=== PATIENT | male | born 1975 | race Caucasian/White ===

== ENCOUNTER 2016-06-21 16:18 | Inpatient (IN) | payer OTHER ==
[~2016-06-21] VITALS: Ht 172.7 cm; Wt 285.8 kg
[2016-06-21 17:10] LABS: ABSOLUTE BASOPHIL COUNT 0 /CUMM (0.0-0.2); ABSOLUTE EOSINOPHIL COUNT 0 /CUMM (0.0-0.7); ABSOLUTE GRANULOCYTE CT 9.4 /CUMM (1.4-6.5); ABSOLUTE LYMPH COUNT 1.3 /CUMM (1.2-3.4); ABSOLUTE MONOCYTE COUNT 0.8 /CUMM (0.10-0.60); BASOPHIL % 0.2 % (0.0-2.0); EOSINOPHIL % 0.3 % (0-5); GRANULOCYTE % 80.9 % (42.2-75.2); HEMATOCRIT 36.2 % (42-52); MEAN CORPUSCULAR HGB 25.1 PG (27.0-31.0); MEAN CORPUSCULAR HGB CONC 32.4 G/DL (33.0-37.0); MEAN CORPUSCULAR VOLUME 77.7 FL (80.0-94.0); MEAN PLATELET VOLUME 7.7 FL (7.4-10.4); PLATELET COUNT 402 /CUMM (130-400); RBC DISTRIBUTION WIDTH 17.1 % (11.5-14.5); RED BLOOD CELL CT 4.66 /CUMM (4.70-6.10); WHITE BLOOD CELL COUNT 11.6 /CUMM (4.8-10.8)
[2016-06-21 17:25] LABS: PT 12.6 SEC (9.4-12.5)
--- NOTE | 2016-06-21 18:05 | ED GENERAL ADULT ---
See Addendum History of Present Illness General Chief Complaint: General Adult Stated Complaint: PT THINKS HE BLEEDING UNDER THE SKIN Source: patient Exam Limitations: no limitations Vital Signs & Intake/Output Vital Signs & Intake/Output Vital Signs Date Time Temp Pulse Resp B/P Pulse O2 O2 Flow FiO2 Ox Delivery Rate 06/21 1930 101.7 98 20 133/69 100 Room Air 06/21 1644 98.5 113 158/92 94 Allergies Coded Allergies: No Known Allergies (06/21/16) Reconcile Medications Cholecalciferol (Vitamin D3) (D3-50) 50,000 UNIT CAPSULE 1 TAB PO ONCE A WEEK VITAMINS (Reported) Triage Note: PER PT BEHIND RT KNEE BRUISING AND L KNEE TOO, PT IS EXTREMELY OBESE AND WENT TO WALK IN AND WAS TOLD HE WAS BLEEDING UNDER HIS SKIN NEEEDS LABS, TENDER TO RT CALF, DENIES LONG TRAVEL NO TRAUMA. Triage Nurses Notes Reviewed? yes Onset: Gradual Duration: day(s): (4) Timing: no prior history Injury Environment: home Severity: moderate Severity Numbers: 6 HPI: Patient is a 41-year-old male with history of obesity but not any medications presenting to the emergency department with chief complaint of rash that started 4 days ago. Rash started initially on upper extremities and spread to his trunk and lower extremities. Patient was seen at a walk-in clinic and told to come to the emergency department for evaluation. Denies any new exposures. No recent travel. Denies any nausea vomiting fevers or chills chest pain or shortness of breath. The rash is not pruritic. The rash is not painful. Denies history of similar rash. Denies any urinary symptoms. No diarrhea. He reports that he had the chills 2 days prior to onset of rash but no other symptoms. Denies any excessive NSAID use. He was seen in a walk-in clinic and they thought he was "bleeding under THE skin "and told him to come to the ER. Patient denies taking anything to help with the rash. Nothing seems to make it better or worse. He reports that the backs of his knees are very "chafed" and now becoming painful and more red. He thinks may have cellulitis. Denies any numbness or tingling. Pain does not radiate. (LESLY AREVALO,YUN) Past History Travel History Traveled to [place] past 21 day No Medical History Any Pertinent Medical History? see below for history Neurological: NONE Cardiovascular: NONE Respiratory: NONE Gastrointestinal: MORBID OBESITY Hepatic: NONE Renal: NONE Psychiatric: NONE Endocrine: NONE Surgical History Surgical History: non-contributory Psychosocial History What is your primary language Romansh Tobacco Use: Never used Family History Hx Contributory? No (YUN HARTMAN) Review of Systems Review of Systems Constitutional: Reports: chills. Comments Review of systems: See HPI, All other systems negative. Constitutional, no fever or weight loss HEENT: No visual changes no sore throat no congestion Cardiovascular: No chest pain ,palpitation , orthopnea or ankle swelling Skin, no jaundice Respiratory: No dyspnea cough sputum or hemoptysis GI: No nausea no vomiting : No dysuria No hematuria Muscle skeletal: no back pain, no neck pain, Neurologic: No numbness no confusion NO TRIPATHI Psych: No stress anxiety Immunology: No splenectomy or history of AIDS (YUN HARTMAN) Physical Exam Physical Exam General Appearance: no apparent distress, alert, awake, comfortable, obese Comments: Obese person in no acute distress HEENT: Pupils equally round and reactive to light and accommodation. Nose is atraumatic. Pharynx normal. No swelling or edema. No oral lesions. Neck: Normal inspection Back: Nontender, no CVA tenderness. Full range of motion Cardiovascular: Regular rate and rhythms no murmurs rubs or gallops, normal JVP Respiratory: No respiratory distress.breath sounds clear to auscultation bilaterally Abdomen: Soft, obese, nontender nondistended Extremity: Severe nonpitting edema in lower extremities bilaterally, mild calf tenderness to palpation bilaterally, to palpate pulses secondary to body habitus. Neuro: Alert oriented x3, motor sensory normal Skin: Severe redness noted in the popliteal region on the left and right. Very warm to palpation in this area. Tattoos noted on the left lower extremity. Petechial rash noted to the lower aspect of the abdomen and lower extremities bilaterally. Psych: Mood and affect is normal, memory and judgment is normal. Core Measures ACS in differential dx? No CVA/TIA Diagnosis: No Severe Sepsis Present: No Septic Shock Present: No (YUN HARTMAN) Progress Differential Diagnoses I considered the following diagnoses in my evaluation of the patient: DVT, cellulitis, tick borne illness,ttp, hsp Plan of Care: Orders Procedure Date/time Status Regular Diet 06/22 B Active Saline Lock 06/21 2027 Active Misc Message 06/21 2027 Active ED Holding Orders 06/21 2027 Active Admit to inpatient 06/21 2027 Active Vital Signs 06/21 2027 Active Activity/Ambulation 06/21 2027 Active Code Status 06/21 2027 Active BLOOD CULTURE 06/21 2015 Active Patient Data 06/21 2009 Active RAPID VIRAL INFLUENZA A 06/21 1958 Complete Add-on Test (ER Only) 06/21 1917 Active Add-on Test (ER Only) 06/21 1803 Active Add-on Test (ER Only) 06/21 180 Active TOTAL IRON BINDING CAPACITY 06/21 165 Complete GLYCOSYLATED HGB 06/21 165 Active FOLIC ACID 06/21 165 Complete FERRITIN 06/21 165 Complete SERUM IRON 06/21 165 Complete PROTHROMBIN TIME 06/21 164 Complete D-DIMER 06/21 164 Complete COMPREHENSIVE METABOLIC PANEL 06/21 164 Complete CBC WITHOUT DIFFERENTIAL 06/21 164 Complete Laboratory Tests 06/21/16 1654: Hemoglobin A1c Pending 06/21/16 1654: Anion Gap 14, Estimated GFR > 60, BUN/Creatinine Ratio 17.8, Glucose 114 H, Calcium 9.3, Iron 15 L, TIBC 323, Ferritin 107.0, Total Bilirubin 0.6, AST 21, ALT 20 L, Alkaline Phosphatase 84, Total Protein 7.9, Albumin 3.8, Globulin 4.1 , Albumin/Globulin Ratio 0.9 L, Folate 11.3, PT 12.6 H, INR 1.20 H, D-Dimer 2587 H, CBC w Diff NO MAN DIFF REQ, RBC 4.66 L, MCV 77.7 L, MCH 25.1 L, RDW 17.1 H, MPV 7.7, Gran % 80.9 H, Lymphocytes % 11.4 L, Monocytes % 7.2, Eosinophils % 0.3, Basophils % 0.2, Absolute Granulocytes 9.4 H, Absolute Lymphocytes 1.3, Absolute Monocytes 0.8 H, Absolute Eosinophils 0, Absolute Basophils 0, PUBS MCHC 32.4 L, Ehrlichia DNA (PCR) Pending Microbiology 06/21 2015 BLOOD: Blood Culture - ORD 06/21 2015 BLOOD: Blood Culture - ORD Diagnostic Imaging: Viewed by Me: Ultrasound. Discussed w/RAD: Ultrasound. Radiology Impression: PATIENT: JOSE BAKER RECORD NO: [id number] PRESENT AGE: 41 PATIENT ACCOUNT NO: [id number] : 73 LOCATION: [facility] ORDERING PHYSICIAN: YUN AREVALO SERVICE DATE: 06/21/16 EXAM TYPE: US - US-EXT BILAT VENOUS DOPPLER EXAMINATION: US TRIPLEX LOWER EXTREMITY, BILATERAL CLINICAL INFORMATION: Lower extremity pain and swelling. COMPARISON: None. TECHNIQUE: Color-flow triplex imaging with spectral analysis and compression Doppler were performed on the bilateral lower extremities. The study is significantly limited as reported by the technologist due to patient body habitus. FINDINGS: Respiratory variation, normal compression and augmented flow are noted throughout the bilateral lower extremities. The visualized common femoral vein, superficial femoral vein, and profunda femoral vein. Color flow is visible within the right popliteal vein and posterior tibial/peroneal trunk region. The remainder of the calf veins inferiorly are not visible on the right side. The left popliteal vein and calf veins are not adequately assessed. There is no Simon's cyst. IMPRESSION: Very limited study due to patient body habitus. No evidence of a deep vein thrombosis in the right lower extremity from the common femoral vein to the popliteal vein with poor visualization of the calf veins distal to the posterior tibial/peroneal trunk region. No evidence of deep vein thrombosis in the left lower extremity from the common femoral vein to the profunda femoral vein. The left popliteal vein and calf veins are not readily visualized due to patient body habitus. DICTATED BY: ALAN LI MD DATE/ TIME DICTATED:06/21/161920 ASTRONOMY PROFESSOR:PENG DATE/TIME TRANSCRIBED: 06/21/161920 CONFIDENTIAL, DO NOT COPY WITHOUT APPROPRIATE AUTHORIZATION. < Electronically signed in Other Vendor System> SIGNED BY: ALAN LI MD 06/21/161928 Initial ED EKG: none Comments: 06/21/2016 6:21:58 PM on arrival patient is afebrile no acute distress. Appears the patient has good to go rash in the lower extremities and abdomen with localized cellulitis in the popliteal region bilaterally. Patient will of her lower extremity Doppler to rule out DVT, more suspecting cellulitis. Unsure of etiology of petechial rash at this time. We will assess CBC, CMP, tick borne panel. No known history of tick bite or travel. 06/21/2016 7:14:41 PM patient informed of all lab results and imaging study results. No signs of DVT on ultrasound. Patient now febrile at 101.7. Patient will be admitted for cellulitis. We will also assess for flu swab. 06/21/2016 8:17:54 PM patient medicated with IV Toradol, IV fluids. Patient resting comfortably. Blood cultures ordered now the patient is febrile. (YUN HARTMAN) Departure Departure Time of Disposition: 1958 Disposition: STILL A PATIENT Condition: Stable Clinical Impression Primary Impression: Cellulitis Referrals: PATIENT HAS NO PRIMARY CARE DR (PCP/Family) Departure Forms: Customer Survey General Discharge Information Admission Note Sp[facility] With: ALISON FOLEY,[facility] Documentation of Exam: Documentation of any treatments & extenuating circumstances including Concerns Regarding Discharge (functional status, medication knowledge or non-compliance, living conditions, etc.) that warrant an admission rather than observation: Patient requiring IV antibiotics for cellulitis, pending tickborne panel for questionable vasculitis, IV hydration, patient may need infectious disease consultation, discharge at this time would be medically harmful. (YUN HARTMAN) PA/SUPERVISOR MIXING Co-Sign Statement Statement: ED Attending supervision documentation- [X] I saw and evaluated the patient. I have also reviewed all the pertinent lab results and diagnostic results. I agree with the findings and the plan of care as documented in the PA's/SUPERVISOR MIXING's documentation. [X] I have reviewed the ED Record and agree with the PA's/SUPERVISOR MIXING's documentation. [] Additions or exceptions (if any) to the PAs/SUPERVISOR MIXING's note and plan are summarized below: [] (CHERRI FOLEY,ALAN Villafuerte) Critical Care Note Critical Care Note Critical Care Time: non-applicable (YUN HARTMAN)
--- NOTE | 2016-06-21 19:29 | ULTRASOUND REPORT ---
EXAMINATION: US TRIPLEX LOWER EXTREMITY, BILATERAL CLINICAL INFORMATION: Lower extremity pain and swelling. COMPARISON: None. TECHNIQUE: Color-flow triplex imaging with spectral analysis and compression Doppler were performed on the bilateral lower extremities. The study is significantly limited as reported by the technologist due to patient body habitus. FINDINGS: Respiratory variation, normal compression and augmented flow are noted throughout the bilateral lower extremities. The visualized common femoral vein, superficial femoral vein, and profunda femoral vein. Color flow is visible within the right popliteal vein and posterior tibial/peroneal trunk region. The remainder of the calf veins inferiorly are not visible on the right side. The left popliteal vein and calf veins are not adequately assessed. There is no Simon's cyst. IMPRESSION: Very limited study due to patient body habitus. No evidence of a deep vein thrombosis in the right lower extremity from the common femoral vein to the popliteal vein with poor visualization of the calf veins distal to the posterior tibial/peroneal trunk region. No evidence of deep vein thrombosis in the left lower extremity from the common femoral vein to the profunda femoral vein. The left popliteal vein and calf veins are not readily visualized due to patient body habitus.
[2016-06-21] MEDS ORDERED: D3-5050000 UNIT PO (19:39)
--- NOTE | 2016-06-21 21:01 | History & Physical ---
SILVIA RODRIGUEZ MD 06/21/162100: General Information and HPI MD Statement: I have seen and personally examined JOSE BAKER and documented this H&P. The patient is a 41 year old M who presented with a patient stated chief complaint of [rash]. Source of Information: patient, family Exam Limitations: no limitations History of Present Illness: 41-year-old with PMH of morbid obesity, severe chronic bilateral leg swelling most likely lymphedema, presented to the ED for evaluation of rash. The rash started 4 days ago, in both upper extremities, characteristic is pinpoint, raised, non-blanching, painless, SPARES THE PALMS. The rash then spread to his trunk, back and lower extremities. The characteristic of the rash on his trunk, groin fold, and lower extremities are petechial - purpuric, not raised, non-blanching, SPARING THE SOLES. The purpuric rash is worst on the back side of his right knee compared to the left. On our examination, there is no rash on the back and chest. He is also reporting "cellulitis" on the back of his left knee. He notes worsening erythema on the back of his knee over the past 1 week, and says that the area is "chafed and bruised". It also hurts more on ambulation. But he denies decreased ambulation due to the pain. Pain level was 2-3 during examination at rest (toradol was given 1 time in the ED). There was an oval 15cm X 10cm black lesion on the back of his left knee, that looks like a scab, but could be necrotic skin. There was no obvious abscess, or drainage. The area was non tender to touch. He also notes worsening erythema of the back of his right knee that started 2 days ago. He presented to the walk in clinic today, and was told to go to the ED for further evaluation of the rash, described as "bleeding under the skin", and blood work. Pt was a little upset about having to be admitted. He has a sleep study scheduled tomorrow at [facility] and he would be charged $200 for less than 24 hours cancellation. He would like a doctor to call the clinic tomorrow to let them know that he is being admitted. ROS: Stuffy nose and dry cough started in the ED. He also reports chills when his temp was found to be 101.7 in the ED (he came in with temp 98.5). He also had chills last saturday after he had "undercooked sausage" burrito, soon after which he also had difficulty breathing and was feeling dizzy. He was evaluated at EMS and "they could not find anything wrong". On Saturday, he had diarrhea, which has now resolved. No nausea, or vomiting, and has been tolerating food well. denies chest pain, shortness of breath, palpitations, abdominal pain. Reports darkening of urine today (attributed it to feeling dehydrated, not drinking that much fluids). He denies waking up in the middle of the night short of breath, or waking up tired. But he is supposed to get sleep study done tomorrow. FH: dad has HTN and stroke, . mom has diet controlled diabetes mellitus. Social history: Pt lives at home by himself. Denies smoking and illicit drug use. Occasional alcohol use. Pt has 6 tatoos: 1 on his back, 3 on his left lower extremity, 1 on each biceps, all done more than 8 years ago. 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 Sexual history: Pt has 1 lifetime sexual partner and has not been sexually active in 2 years. Allergies: dust Meds: Vit D and multivitamin Allergies/Medications Allergies: Coded Allergies: No Known Allergies (06/21/16) Home Med list Cholecalciferol (Vitamin D3) (D3-50) 50,000 UNIT CAPSULE 1 TAB PO ONCE A WEEK VITAMINS (Reported) Past History Travel History Traveled to [place] past 21 day No Medical History Neurological: NONE Cardiovascular: NONE Respiratory: NONE Gastrointestinal: MORBID OBESITY Hepatic: NONE Renal: NONE Psychiatric: NONE Endocrine: NONE Surgical History Surgical History: non-contributory Past Family/Social History Family History Relations & Conditions if any FATHER FH: hypertension FH: stroke MOTHER FH: diabetes mellitus Psychosocial History Where do you live? Home Who Do You Live With? self Services at Home: None Primary Language: Pakistani Smoking Status: Never Smoked ETOH Use: occasional use Illicit Drug Use: denies illicit drug use Functional Ability ADLs Independent: dressing, eating, toileting, bathing. Ambulation: independent IADLs Independent: shopping, housework, finances, food prep, telephone, transportation , medication admin. 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 Denies: weakness. EENTM: Denies: visual changes. Cardiovascular: Reports: peripheral edema. Denies: chest pain, edema, orthopena, palpitations. Respiratory: Reports: cough. Denies: hemoptysis, orthopnea, short of breath, sputum production. GI: Denies: abdominal pain, bloating, constipation, diarrhea, nausea, bloody stool, changes in stool, vomiting. Genitourinary: Denies: dysuria. Skin: Reports: see HPI. Exam & Diagnostic Data Last 24 Hrs of Vital Signs/I&O Vital Signs Date Time Temp Pulse Resp B/P Pulse O2 O2 Flow FiO2 Ox Delivery Rate 06/21 1931 101.7 98 20 133/69 100 Room Air 06/21 1644 98.5 113 158/92 94 Physical Exam General Appearance Alert, Oriented X3, Cooperative, anxious and a little irritable Skin - rash UE pinpoint, raised, non blanching, painless, spares palm - rash trunk, bilateral LE, groin fold - petechial-purpuric, not raised, non blanching, painless, sparing the soles - oval 15 cm X 10 cm black lesion on back of his left knee, no obvious abscess/drainage HEENT Atraumatic, PERRLA, EOMI, dry lips and mucous membranes Neck Supple, +2 Carotid Pulse wo Bruit, No LAD Lymphatic Axillary nl, Cervical nl Cardiovascular Normal S1, Normal S2, No Murmurs, Gallops, Rubs, tachycardic Lungs Clear to Auscultation, Normal Air Movement Abdomen Normal Bowel Sounds, Soft, No Tenderness, No Hepatospenomegaly, obese abdomen Neurological Normal Speech Extremities severe. chronic leg swelling. non pitting. Vascular Normal Pulses Last 24 Hrs of Labs/Kenn: Laboratory Tests 06/21/16 2309: Lactic Acid Pending, ESR Westergren Pending 06/21/16 1654: Hemoglobin A1c Pending, Hepatitis A IgM Ab Pending, Hep Bs Antigen Pending, Hep B Core IgM Ab Conf Pending, Hepatitis C Antibody Pending, HIV 1&2 Ab Western Blot Pending 06/21/16 1654: Anion Gap 14, Estimated GFR > 60, BUN/Creatinine Ratio 17.8, Glucose 114 H, Lactic Acid 1.3, Calcium 9.3, Iron 15 L, TIBC 323, Ferritin 107.0, Total Bilirubin 0.6, AST 21, ALT 20 L, Alkaline Phosphatase 84, C-Reactive Prot, Quant 7.6 H, Total Protein 7.9, Albumin 3.8, Globulin 4.1, Albumin/Globulin Ratio 0.9 L, Folate 11.3, TSH 3.550, PT 12.6 H, INR 1.20 H, D-Dimer 2587 H, CBC w Diff NO MAN DIFF REQ, RBC 4.66 L, MCV 77.7 L, MCH 25.1 L, RDW 17.1 H, MPV 7.7, Gran % 80.9 H, Lymphocytes % 11.4 L, Monocytes % 7.2, Eosinophils % 0.3, Basophils % 0.2, Absolute Granulocytes 9.4 H, Absolute Lymphocytes 1.3, Absolute Monocytes 0.8 H, Absolute Eosinophils 0, Absolute Basophils 0, PUBS MCHC 32.4 L, Ehrlichia DNA (PCR) Pending Microbiology 06/21 2230 URINE ROUT: Urine Culture - ORD 06/21 2230 STOOL: Stool Culture - ORD 06/21 2212 BLOOD: Blood Culture - RECD 06/21 2208 BLOOD: Blood Culture - RECD Assessment/Plan Assessment: 41-year-old with PMH of morbid obesity, severe chronic bilateral leg swelling most likely lymphedema, presented to the ED for evaluation of rash. Admitted to general medicine for the following problems: # Diffuse rash affecting upper extremities, lower extremities, trunk, sparing the palms and soles. Possible cause could be vasculitis (hx of repeated "cellulitis" of the leg, although no FH of autoimmune disease) vs infectious ( spiked fever to 101.7 in ED, recent hx of diarrhea after eating undercooked sausage, that has resolved) vs meningoccocal meningitis (unlikely because he does not have neck stiffness/neurological symptoms/headache) vs drug induced ( but unlikely because he denies new medications, and eosinophil normal) vs syphilis (pt has 1 lifetime sexual partner and has not been sexually active in 2 years) vs hepatitis C cryoglobulinemia (has 6 tatoos: 1 on his back, 3 on his left lower extremity, 1 on each biceps, all done more than 8 years ago) vs tick- borne (although denies recent travel or outdoor activities). - The rash started 4 days ago, in both upper extremities, characteristic is pinpoint, raised, non-blanching, painless, non-pruritic, SPARES THE PALMS. The rash then spread to his trunk, back and lower extremities. The characteristic of the rash on his trunk, groin fold, and lower extremities are petechial - purpuric, not raised, non-blanching, non-pruritic, painless, SPARING THE SOLES. The purpuric rash is worst on the back side of his right knee compared to the left. On our examination, there is no rash on the back and chest. - Pt feels dehydrated and notes darkening of urine, most likely due to dehydration * IVF NS at 125ml/hr. * Consider starting steroids * Follow up HIV, hepatitis panel * Follow tick borne panel: erlichia, lyme * Follow LUIS ANGEL, RF, ASO * Follow C-ANCA, P-ANCA, anti-myeloperoxidase, cryoglobulin, complement levels * Follow urine toxicology * Might need skin biopsy * Negative rapid flu * ESR elevated at 83 * CRP elevated at 7.6 * Lactic acid 1 --> 0.7 * Panculture: BC, sputum culture, stool wbc, stool culture, UA, urine culture * Please obtain ID and rheumatology consult in am * Consider derm consult and wound consult # Sepsis (fever up to 101.7, leukocytosis, tachycardia) most likely secondary to cellulitis. Possible cellulitis of back of left knee, with elevated D dimer, DVT ruled out with doppler studies - Worsening redness and pain on the back of his left knee over the past 1 week, area is warm to the touch compared to the rest of his body. - It hurts more on ambulation. But he denies decreased ambulation due to the pain. Pain level was 2-3 during examination at rest (toradol was given 1 time in the ED). There was an oval 15cm X 10cm black lesion on the back of his left knee , that looks like a scab, but could be necrotic skin. There was no obvious abscess, or drainage. The area was non tender to touch. - He also notes worsening erythema of the back of his right knee that started 2 days ago. - D dimer elevated at 2587. Doppler of both lower extremities negative for DVT. - WBC 11.6, spiked fever up to 11.6. Was given 1 time IV unasyn in the ED * Continue unasyn pending ID evaluation * Tylenol for fever and pain * Oxycodone for pain * CXR for possible PNA (cough started in ED) * Follow fibrin split product and fibrinogen level # Candidiasis of abdominal fold * Nystatin powder # Anemia of chronic disease? - Iron low at 15. Ferritin normal 107, TIBC 323 * Watch H/H # Thrombocytosis - platelet 402 H * Watch platelet count # Morbid obesity - Currently following up with haul driver and plan for bariatric surgery in October- November * Lipid panel and hba1c # Possible MEHRAN - Supposed to get sleep at [facility] on 06/22/16 and he would be charged $200 for cancelling in less than 24 hours due to current admission * Please call the clinic and let them know he is being admitted # Home meds not continued - Vit D - Multivitamin Diet: regular Fluids: 125ml/hr NS DVT ppx: mech and pharm FULL CODE As Ranked By This Provider Problem List: 1. Cellulitis 2. Rash Core Measures/Miscellaneous Acute Coronary Syndrome ACS Diagnosis: No Cerebrovascular Accident CVA/TIA Diagnosis: No Congestive Heart Failure CHF Diagnosis: No Venous Thromboembolism VTE Risk Factors: Acute medical illness, Age > 40 VTE Prophylaxis Ordered Inpt: Mech & Pharm No Mech VTE prophylaxis d/t: No contraindications No VTE Pharm Prophylaxis d/t: No contraindications VTE Diagnosis: No VTE Type: NONE VTE Confirmed by (Test): DUPLEX VENOUS EXTREM UNI Severe Sepsis Severe Sepsis Present: No Septic Shock Septic Shock Present: No Miscellaneous Documentation Attending Case Discussed With: TUYET ROSAS MD Primary Care Physician: PATIENT HAS NO PRIMARY CARE DR Patient sees these Specialists None Level of Patient Care: General Medicine LINDSAY ROSAS MD 06/21/16 9036: Attending MD Review Statement Attending Statement Attending MD Statement: examined this patient, discuss w/resident/PA/ORNAMENTAL BRICK INSTALLER, agreed w/resident/PA/ORNAMENTAL BRICK INSTALLER, discussed with family Attending Assessment/Plan: 41 yo morbidly obese M with chronic LE edema, vit D deficiency, sent in by a walk in clinic for evaluation of petechial rash over bilateral arms, purpuric rash over lower abdomen and b/l lower extremities, sparing palms and soles over past 4 days. He reports the back of the left knee feels chafed/ bruised for the past 1 week, and worsening erythema to right leg over 2 days. This was preceded by diarrhea without nausea/vomiting/ abd pain on Saturday after eating sausage burrito on the Saturday prior. Denies recent travel, trauma, sick contacts or new medications. No tick bites. No new detergents or clothing. Not sexually active for past 2 years. Reports poor appetite, chills+. Dry cough while in ER. Family history is noncontributory. Vitals: Tmax 101.7, tachycardic 90-110's, ANGELITA 133/69, sats 100% RA. Exam: morbidly obese male in mild distress, dry mucous membranes, no mucosal involvement no rash/ blisters to buccal mucosa, no pallor or lymphadenopathy. Petechial nonblanching, non pruritic rash noted to b/l arms, purpuric rash noted to lower abdomen and groin. Moist fungal rash noted to intertriginous area ( groin). Bilateral LE non pitting edema (chronic) with venous stasis changes, with purpuric rash to posterior aspect of both knees (L>R). Left LE appears more erythematous than right, painful, no blisters or open wounds. Rash spares palms, soles, chest and back. Tattoes noted to LLE, b/l arms (>8 yrs ago). Chest b/l clear, Heart S1S2 tachycardic, Abd soft, non tender. Neuro nonfocal, no meningeal signs. Labs: WBC 11.6, microcytic anemia, Plt 402, INR 1.20, D-dimer 2587, elevated CRP , normal lactic acid, TSH/free T4, LE dopplers no DVT. 1. Fever and rash in an immunocompetent host of unclear etiology. ?Infectious etiology, ?tick borne disease vs. vasculitides. Meningococcemia may present with rash sparing palms and soles. Will panculture, check flu swab, strep throat, tick-borne panel sent from ER, check HIV, hepatitis panel, ESR, LUIS ANGEL, RF, ANCA. Check HbA1c, lipid panel. Obtain urinalysis and urine tox screeen. Continue IV fluids @ 125/hr. Check EKG and troponin in the setting of tachycardia. Obtain CXR to rule out pneumonia. Rheumatology and ID consults in AM. 2. SIRS (fever, tachycardia) with possible source being left lower extremity cellulitis. Panculture, UA and CXR pending, continue IV Unasyn for now. ID consult in AM. Elevate LE. 3. Elevated d-dimer in the setting of infection, SIRS/sepsis. No evidence of DVT , low likelihood of PE not hypoxic or tachypneic. Check DIC panel. LFTs and renal functions are normal. Consider CTA chest if patient persistently tachycardic, hypoxic or tachypneic. 4. Thrombocytosis likely reactive in the setting of infection and anemia. 5. Microcytic anemia low serum iron, borderline low normal TIBC and elevated ferritin (107), most likely s/o anemia of inflammation or chronic disease, although iron deficiency cannot be ruled out. Guaiac all stools. Hold off on iron supplements for now. DVT ppx Alps, avoid heparin products for now. Full code. Of note, patient is scheduled for a sleep study on 06/22 at [facility]. He called to cancel the appointment, however they are asking him to pay the charges. He is requesting a physician to speak with [facility] office and let them know about his admission to forfeit the fees. SA TRUMANUD 06/21/16 0003: Resident Review Statement Resident Statement: examined this patient, discussed with chief of internal medicine, agreed with chief of internal medicine, discussed with family, reviewed EMR data (avail), reviewed images, amended to note Other Findings: This is 41-year-old with PMH of morbid obesity, severe chronic bilateral leg swelling\\ presented to the ED for evaluation of rash. Patient stated that prior started 4 days ago in his upper extremity and descend to involve his abdomen and back and his lower extremity. Patient also reports on and off cellulitis, but he stated since last week his cellulitis getting worse especially in the left side and he developed right lower extremity cellulitis 2 days ago. He stated that there was an oval black lesion on the back of his left knee, that looks like a scab, but could be necrotic skin. There was no obvious abscess, or drainage. The area was non tender to touch. Patient stated that he has some difficulty ambulation due to pain. Patient also reports feeling sick after eating under cooked meat, he stated that in breasts was cold when he was in walk because he felt dizzy and difficulty breathing and after evaluation he was sent home without any further intervention also he reports some diarrhea that resolved now. He denied any sick contact or recent traveling. He deny any fever or chills. But during his stay in the emergency department spike a fever of 101.7 that was associated with chills. denies chest pain, shortness of breath , palpitations, abdominal pain. Reports darkening of urine today he feeling dehydrated and not drinking that much fluids. patient deny any tick bite, hiking. Physical examination, lab and imaging as above. Problem list: -Bilateral lower extremity cellulitis -Extensive non-itchy nonblanching rash, vasculitis need to be ruled out, This rash also it could be secondary to bacteremia. -Microcytic iron deficiency anemia -Leukocytosis, thrombocytosis -Morbid obesity Plan: -Admit patient to general medicine floor -Vitals every shift, monitor I & Os. -We'll continue IV Unasyn, send lactic acid -Blood, urine and sputum culture, urinalysis -Serology involving hepatitis panel, HIV -Continue IV fluid hydration at 75 mL per hour -Start the patient on iron supplement. -Check hemoglobin A1c, TSH, ESR, CRP, LUIS ANGEL and Lipid Panel -Nystatin powder as needed for rash -Consider ID, Rhumatology consultation in a.m. -Wound care consultation -Regular diet -Pain away -DVT prophylaxis: Lovenox -Full code -Full code
--- NOTE | 2016-06-21 21:10 | Admission Certification ---
Admission Certification Certification Statement - As attending physician, I certify that at the time of - admission, based on clinical presentation, severity of - symptoms, need for further diagnostic testing and - therapeutic interventions, and risk of adverse outcomes - without in-hospital treatment, in my clinical assessment, - this patient requires an acute hospital stay for a minimum - of two nights or longer. I have also considered psychsocial - factors such as support system, advanced age, financial - issues, cognitive issues, and failed out-patient treatments, - past re-admission history, safety of patient, and lack of - compliance as applicable. Specific rationale supporting this admission is: Fever and extensive rash of unclear etiology. Possible LE cellulitis.
[2016-06-22 05:51] LABS: ABSOLUTE BASOPHIL COUNT 0 /CUMM (0.0-0.2); ABSOLUTE EOSINOPHIL COUNT 0.1 /CUMM (0.0-0.7); ABSOLUTE GRANULOCYTE CT 5.1 /CUMM (1.4-6.5); ABSOLUTE LYMPH COUNT 1.6 /CUMM (1.2-3.4); ABSOLUTE MONOCYTE COUNT 0.8 /CUMM (0.10-0.60); BASOPHIL % 0.3 % (0.0-2.0); EOSINOPHIL % 0.9 % (0-5); MEAN CORPUSCULAR HGB 25.5 PG (27.0-31.0); MEAN CORPUSCULAR HGB CONC 32.9 G/DL (33.0-37.0); MEAN CORPUSCULAR VOLUME 77.5 FL (80.0-94.0); MEAN PLATELET VOLUME 7.4 FL (7.4-10.4); PLATELET COUNT 330 /CUMM (130-400); RBC DISTRIBUTION WIDTH 17.3 % (11.5-14.5); RED BLOOD CELL CT 3.75 /CUMM (4.70-6.10); WHITE BLOOD CELL COUNT 7.6 /CUMM (4.8-10.8)
[2016-06-22 06:10] LABS: HEMATOCRIT 29.1 % (42-52)
--- NOTE | 2016-06-22 06:52 | PN- Housestaff ---
DIANNA FOLEY,SUNNY 06/22/16 0651: Subjective Follow-up For: Rash is all over the body, with fever Subjective: I followed of the patient who was admitted overnight. He was lying comfortably over the bed, not in any acute distress. No overnight events. Vitals stable. Review of Systems Constitutional: Reports: see HPI, fever. Denies: chills, diaphoresis, malaise, weakness. EENTM: Reports: no symptoms. Cardiovascular: Reports: no symptoms. Respiratory: Reports: no symptoms. Gastrointestinal: Reports: no symptoms. Genitourinary: Reports: no symptoms. Musculoskeletal: Reports: no symptoms. Skin: Reports: see HPI, rash. Neurological/Psychological: Reports: no symptoms. Hematologic/Endocrine: Reports: no symptoms. Objective Last 24 Hrs of Vital Signs/I&O Vital Signs Date Time Temp Pulse Resp B/P Pulse O2 O2 Flow FiO2 Ox Delivery Rate 06/22 1624 98.3 91 20 146/76 96 06/22 1343 98.8 92 20 158/73 95 Room Air 06/22 0818 100.9 92 20 135/66 97 Room Air 06/22 0454 100.2 06/21 1931 101.7 98 20 133/69 100 Room Air Intake & Output 06/22 1600 06/22 0800 06/22 0000 Intake Total 1240 2100 Output Total Balance 1240 2100 Intake, IV 1000 2100 Intake, Oral 240 Patient 285.763 kg Weight Physical Exam General Appearance: Alert, Oriented X3, Cooperative, No Acute Distress, morbidly obese Other Physical Findings: Physical examnination: General: morbidly obese patient not in distress Head: Normocephalic, atraumatic Eyes: Pupils normal in size, regular, reacting to light and accommodation, EOM normal Ears: B/l normal on inspection Nose: Normal on inspection Throat/mouth: Moist mucosa Neck: Supple, full range of motion, no thyromegaly Heart: Regular rate, regular rhythm Lung: Normal breath sound bilaterally Added sound not heard Abd: Soft, non-tender, no distention appreciated Back: Normal range of motion Extremities: Left popleteal ulceration, with diffuse petechial rashes over upper , and lower extremities (marked with surgical marker for future reference) Neurologic: Alert, oriented x3, Cranial exam grossly intact, Speech is clear and coherent Skin: Warm and dry, small petechial rashes over torso, and lower abdomen, more over extremities. Rash over right upper arm has appeared overnight according to the patient. Psychiatric: Calm, cooperative, coherant, no SI, no HI Current Medications: Current Medications Sig/Mina Start time Last Medication Dose Route Stop Time Status Admin Acetaminophen 650 MG Q6P PRN 06/21 2230 AC PO Ampicillin Sodium/ 0 .STK-MED ONE 06/22 1127 DC Sulbactam Sodium .ROUTE Ampicillin Sodium/ 0 .STK-MED ONE 06/22 0500 DC Sulbactam Sodium .ROUTE Ampicillin Sodium/ 3,000 MG Q6 06/21 2359 AC 06/22 Sulbactam Sodium IV 1701 Sodium Chloride 100 ML Enoxaparin Sodium 0 .STK-MED ONE 06/22 1127 DC SC Enoxaparin Sodium 40 MG DAILY 06/22 1000 AC 06/22 SC 1150 Ferrous Sulfate 325 MG BID 06/22 1000 CAN PO Ibuprofen 400 MG Q6P PRN 06/21 2230 CAN PO Ketorolac 0 .STK-MED ONE 06/21 2001 DC Tromethamine .ROUTE Ketorolac 30 MG ONCE ONE 06/21 1999 DC 06/21 Tromethamine IV 06/21 2000 2005 Nystatin 1 ARIADNA TID PRN 06/21 2245 AC TOP Oxycodone HCl 10 MG Q6P PRN 06/21 2230 AC PO Sodium Chloride 1,000 ML .Q8H 06/21 2230 AC 06/22 IV 1701 Sodium Chloride 1,000 ML BOLUS ONE 06/21 1999 DC 06/21 IV 06/21 2058 2005 Triamcinolone 1 ARIADNA BID 06/22 1409 AC 06/22 Acetonide TOP 1701 Last 24 Hrs of Lab/Kenn Results Last 24 Hrs of Labs/Mics: Laboratory Tests 06/22/16 1720: APTT 30, Complement C3 Pending, Complement C4 Pending 06/22/16 0930: Urine Opiates Screen < 100.00, Methadone Screen < 40, Barbiturate Screen < 60, Ur Phencyclidine Scrn < 6.00, Amphetamines Screen < 100, U Benzodiazepines Scrn < 85, Urine Cocaine Screen < 50, Urine Cannabis Screen < 5.00, Urine Color YEL, Urine Clarity CLEAR, Urine pH 6.0, Ur Specific [place] >= 1.030, Urine Protein TRACE H, Urine Ketones NEG, Urine Nitrite NEG, Urine Bilirubin NEG, Urine Urobilinogen 1.0, Ur Leukocyte Esterase NEG, Ur Microscopic SEDIMENT EXAMINED, Urine RBC RARE, Urine WBC 3-5 H, Urine Mucus MANY H, Urine Hemoglobin NEG, Urine Glucose NEG 06/22/16527: Troponin I < 0.01, Rheum Factor Semi-Quant < 8.6 06/22/16527: Anion Gap 9, Estimated GFR > 60, BUN/Creatinine Ratio 17.5, Triglycerides 77, Cholesterol 137, LDL Cholesterol, Calc 82, HDL Cholesterol 40, Cholesterol/HDL Ratio 3, APTT 30, Fibrinogen Activity 430 H, Fibrin Degrad Products >10 but < 40 ug/ml H, CBC w Diff NO MAN DIFF REQ, RBC 3.75 L, MCV 77.5 L, MCH 25.5 L, RDW 17.3 H, MPV 7.4, Gran % 67.0, Lymphocytes % 21.5, Monocytes % 10.3 H, Eosinophils % 0.9, Basophils % 0.3, Absolute Granulocytes 5.1, Absolute Lymphocytes 1.6, Absolute Monocytes 0.8 H, Absolute Eosinophils 0.1, Absolute Basophils 0, PUBS MCHC 32.9 L, LUIS ANGEL Titer ND, Anti-Nuclear Antibody NEG 1:40 IFA ASSAY, RPR Titer/FTA Pending, Lyme Disease Antibody 0.20 06/22/16 0125: Lactic Acid 0.7 06/21/16 2309: Lactic Acid 1.0, ESR Westergren 83 H 06/21/16 2013: Virus Culture Pending Microbiology 06/21 2230 URINE ROUT: Urine Culture - CAN Cancelled: SPECIMEN NOT RECEIVED IN LABORATORY 06/21 2230 STOOL: Stool Culture - CAN Cancelled: SPECIMEN NOT RECEIVED IN LABORATORY 06/21 221 BLOOD: Blood Culture - RES 06/21 2208 BLOOD: Blood Culture - RES Assessment/Plan Assessment: 41 yo morbibly obese male with no significant past medical history presented with complaints of rashes over his torso and extremities, who was found to have fever on admission, is currently being evaluated and managed in the general medical floor. On admission, his vitals were stable with temp 98.5, later 101.7 max, pulse 113, resp rate 20, BP 158/92, pulse ox 94% on room air. Initial labs were significant for WBC-11.6, Hb 1107, hct 36.2, plt- 402, normal lytes, CRP 7.6 (high), ESR 83 (high), normal LFT, normal UA with trace protein. PT was 12.6 with INR 1.2, APTT 30, fibronogen activity 430, FDP >10 but <40, D- dimer 2587. TSH normal, folate normal. Further testing showed RA factor <8.6, LUIS ANGEL negative, Hepatitis panel and HIV negative, Lyme disease ab 0.20, negative toxicology screen, Imaging: CXR showed Somewhat limited exam demonstrating low lung volumes and patchy nonspecific bibasilar airspace opacities suggesting edema versus multifocal consolidation. Normal venous Doppler ruling out DVT, left popliteal vein and calf veins not visualized due to patient's body habitus. (Patient does not have tender calves though) #Generalized rash with fever Patient gives history of 3 days history of rash, with fever and chills one week prior to that which had subsided. Rash seems to be increasing with new ones over right upper arm. This is very non-specific and brodens the differential diagnoses to viral infection, bacterial infection, vasculitis, allergies, among others. Lab data is also not specific enough to reach a diagnosis. - Workup so far mentioned above. - Workup pending: Blood and urine culture, Viral culture, RPR, Ehrlichia DNA. - Consulted Staci Jernigan over phone who suggested that the process is likely to be dermatologic, and does not seem to require a formal consultation with permastone applicator at this point of time, but will vist and consult if deemed required by the attending over the weekned too. -Dermatology consultation placed, who suggested skin biopsy for definitive diagnosis, and triamcinolone cream for now. Patient has been seen by surgeon Dr Bhagat for possible biopsy, and informed that the reading might be only after Saturday though. Need to confirm about biopsy time. -Rheumatology consult placed with Dr Guerra, who suggested Dermatologic evaluation as well, ordering ANCA, and not starting systemic steroid for now. - Follow CBC, BEP tomorrow #Cellulitis/skin infection Patient has area of redness in the intertriginous areas, and one area of ulceration over left popliteal fossa. With the fever, slightly high WBC count, and clinical picture, cellulitis is highly likely. -Patient has been started on Unasyn IV, and IV fluids. -Continue abx for now -Continue IV fluids for now -Tylenol for fever -Oxycodone for pain #Fungal infection over abdominal fold/lower part of legs -Continue antifungal agents #Anemia -Microcytic anemia -Most likely of chronic disease, or due to inflammatory process, as the iron is low but TIBC is normal, ferritin normal #Thrombocytosis Initial plt count 402, will track next readings #Morbid obesity Lipid panel normal, HbA1c pending. -Patient following trade marker, planned for bariatric surgery in October-November 2016 -Considering Nutrition consult for malnutrition (overnutrition) #Possible MEHRAN -Patient scheduled for sleep later study today, was cancelled per patient's request by my resident Dr Lockwood (see event note). [place] [facility] acknowledged the patient's condition and cancelled the appointment for today. #Continuing Vitamin D and Multivitmin #Diet: Regular diet #DVT ppx: ALPS, avoiding heparin products for now #Code status: Full code Problem List: 1. Rash Pain Ratin Pain Location: - Pain Goal: Pain 4 or less Pain Plan: prn Tomorrow's Labs & Rationales: follow up on ordered labs, CBC and BEP tomorrow to F/u on suspected infection/ cellulitis. Working up. ALLEGRA HOUSTON MD 06/22/16 1244: Attending MD Review Statement Attending Statement Attending MD Statement: examined this patient, discuss w/resident/PA/PACKING MACHINE TENDER, agreed w/resident/PA/PACKING MACHINE TENDER, reviewed EMR data (avail) Attending Assessment/Plan: 41M PMH morbid obesity, bilateral LE chronic venous stasis presenting with acute onset of non-pruritic peticheal rash in clusters on bilateral arms, bilateral legs. RLE appears to have acute cellulitis. Rash appears vasculitic in nature, non-blanching, non-pruritic. Normal platelets, but FDP and D-dimer are elevated. Plan - Punch biopsy by surgery of rash for pathology and evaluation for vasculitis - Rheumatology and ID consults - Send complement levels - Follow up vasculitis labs sent yesterday - Follow up cultures - Unasyn for RLE cellulitis - DVT Ppx
--- NOTE | 2016-06-22 08:32 | PN- Student ---
Subjective Subjective: Source: Patient History of Present Illness: Mr. Duenas is a 38 y/o M that present to the ER due to a rash. He states that the rash started last Saturday (Jun 18, 2016) and it was localized to the medial aspect of the arms and then radiated to the lower limbs starting on the thighs, buttocks and then moving to the legs. The rash spares the palms, soles and the face. The rash has pin-point morphology and has areas that are diffused and areas that are consolidated (specially in the R fore arm, medial aspect). The rash on the legs is accompanied with severe cellulitis starting on mid thigh and covering up to the ankles. The R leg is covered on the medial aspect with a fungus-like layer that has foul smell. The patient denies any pain, itchiness, fever, night sweats and chills. The patient also denies having any pets. He is currently on a bad mood due to lack of sleep and feel feverish since the morning. Allergies/Medications: Allergies -No known allergies Current Medications -Vitamin D -Multivitamins Past Medical Hx: Travel History Patient denies any trips to [place] areas. Medical History Neurological- NONE Cardiovascular- Hypertension Respiratory- NONE Gastrointestinal- MORBID OBESITY Hepatic- NONE Renal- NONE Psychiatric- NONE Endocrine- NONE Surgical History No surgeries Family History: FATHER Hypertension MOTHER Diabetes mellitus (managed with diet) Psychosocial History: Where do you live? Home Who Do You Live With? Self Services at Home: None Primary Language: [place] Smoking Status: Doesn't smoke EtOH Use: Not a regular user Illicit Drug Use: Denies any use of Illicit drugs Functional Ability: ADLs Independent: dressing, eating, toileting, bathing. Ambulation: independent but limited right now due to cellulitis IADLs Independent: shopping, housework, finances, food prep, telephone, transportation , medication admin. Review of Systems: General: The patient has morbid obesity and denies any changes in weight, night sweats, chills or feeling febrile. HEENT: Patient denies any visual changes or dizzines. Cardiovascular: Patient denies any palpitations. Respiratory: Patient denies any cough and sputum production. GI: Not assessed Genitourinary: Patient denies any changes in urine color/dysuria. Skin: Refer to HPI. Upper Limbs: Refer to HPI. Lower Limbs: Refer to HPI MSK: No muscle weakness. Objective Objective: Vital Signs Date Time Temp Pulse Resp B/P Pulse O2 O2 Flow FiO2 Ox Delivery Rate 06/22 0818 100.9 92 20 135/66 97 Room Air 06/22 0454 100.2 06/21 1931 101.7 98 20 133/69 100 Room Air 06/21 1644 98.5 113 158/92 94 Intake & Output 06/22 1600 06/22 0800 06/22 0000 Intake Total 2100 Output Total Balance 2100 Intake, IV 2100 Results Results: Laboratory Tests 06/22/16 0930: Urine Opiates Screen < 100.00, Methadone Screen < 40, Barbiturate Screen < 60, Ur Phencyclidine Scrn < 6.00, Amphetamines Screen < 100, U Benzodiazepines Scrn < 85, Urine Cocaine Screen < 50, Urine Cannabis Screen < 5.00, Urine Color YEL, Urine Clarity CLEAR, Urine pH 6.0, Ur Specific [place] >= 1.030, Urine Protein TRACE H, Urine Ketones NEG, Urine Nitrite NEG, Urine Bilirubin NEG, Urine Urobilinogen 1.0, Ur Leukocyte Esterase NEG, Ur Microscopic SEDIMENT EXAMINED, Urine RBC RARE, Urine WBC 3-5 H, Urine Mucus MANY H, Urine Hemoglobin NEG, Urine Glucose NEG 06/22/16 0528: Troponin I < 0.01, Rheum Factor Semi-Quant < 8.6 06/22/16 0528: Anion Gap 9, Estimated GFR > 60, BUN/Creatinine Ratio 17.5, Triglycerides 77, Cholesterol 137, LDL Cholesterol, Calc 82, HDL Cholesterol 40, Cholesterol/HDL Ratio 3, APTT 30, Fibrinogen Activity 430 H, Fibrin Degrad Products >10 but < 40 ug/ml H, CBC w Diff NO MAN DIFF REQ, RBC 3.75 L, MCV 77.5 L, MCH 25.5 L, RDW 17.3 H, MPV 7.4, Gran % 67.0, Lymphocytes % 21.5, Monocytes % 10.3 H, Eosinophils % 0.9, Basophils % 0.3, Absolute Granulocytes 5.1, Absolute Lymphocytes 1.6, Absolute Monocytes 0.8 H, Absolute Eosinophils 0.1, Absolute Basophils 0, PUBS MCHC 32.9 L, LUIS ANGEL Titer ND, Anti-Nuclear Antibody NEG 1:40 IFA ASSAY, RPR Titer/FTA Pending, Lyme Disease Antibody 0.20 06/22/16 0125: Lactic Acid 0.7 06/21/16 2309: Lactic Acid 1.0, ESR Westergren 83 H 06/21/16 2013: Virus Culture Pending 06/21/16 1654: Hemoglobin A1c Pending 06/21/16 1654: Anion Gap 14, Estimated GFR > 60, BUN/Creatinine Ratio 17.8, Glucose 114 H, Lactic Acid 1.3, Calcium 9.3, Iron 15 L, TIBC 323, Ferritin 107.0, Total Bilirubin 0.6, AST 21, ALT 20 L, Alkaline Phosphatase 84, C-Reactive Prot, Quant 7.6 H, Total Protein 7.9, Albumin 3.8, Globulin 4.1, Albumin/Globulin Ratio 0.9 L, Folate 11.3, TSH 3.550, PT 12.6 H, INR 1.20 H, D-Dimer 2587 H, CBC w Diff NO MAN DIFF REQ, RBC 4.66 L, MCV 77.7 L, MCH 25.1 L, RDW 17.1 H, MPV 7.7, Gran % 80.9 H, Lymphocytes % 11.4 L, Monocytes % 7.2, Eosinophils % 0.3, Basophils % 0.2, Absolute Granulocytes 9.4 H, Absolute Lymphocytes 1.3, Absolute Monocytes 0.8 H, Absolute Eosinophils 0, Absolute Basophils 0, PUBS MCHC 32.4 L, Hepatitis A IgM Ab NONREACTIVE, Hep Bs Antigen NONREACTIVE, Hep B Core IgM Ab Conf NONREACTIVE, Hepatitis C Antibody NONREACTIVE, HIV 1&2 Ab Western Blot NONREACTIVE 06/21/16 1000: Ehrlichia DNA (PCR) Pending Microbiology 06/21 2230 URINE ROUT: Urine Culture - CAN Cancelled: SPECIMEN NOT RECEIVED IN LABORATORY 06/21 2230 STOOL: Stool Culture - CAN Cancelled: SPECIMEN NOT RECEIVED IN LABORATORY 06/21 2212 BLOOD: Blood Culture - RES 06/21 2208 BLOOD: Blood Culture - RES Assessment/Plan Assessment: Mr. Duenas is a 41 y/o M with morbid obesity and a history of hypertension. The patient has a history of bilateral leg swelling (usually cellulitis) but is still able to ambulate and operate his AIDL's on a daily basis. The patient came in with a rash that started on the medial aspect of the arms and radiated to the lower limbs and the buttocks. The rash has pinpoint morphology and it is not itchy nor painful. The patient has a fever of 100.2 F that started upon admission to the ER. Additional Note: A surgical line was drawn at the most proximal aspect of the rash to assess the radiation extent of it. The process was done with a sterile surgical marker and disposed apprpriately on biohazards. Problem List: 1) Petechial rash 2) Lower Limbs Cellulitis 3) Fever Patient Impression: The patient was not found in any type of distress and was on a bad mood due to lack of sleep. He wss appropriately dressed however there was a foul smell coming from the legs specially the R leg where the cellulitis is more pronounced. The patient has a mild fever and is not in any pain as of the moment of evaluation. Plan: - Schedule a Heme/Onc visit to assess abnormal Lab values (Coagulation, MCV values, etc.). - Schedule a christian science healer visit to assess rash. - Order the following laboratories: * Complement Levels * PTT - Schedule a visit with the Legal Secretary to assess ambulating ability. - Follow up on Glycemic levels and monitor blood pressure and temperature closely. - Follow up on nutrionist visit to assess morbid obesity.
--- NOTE | 2016-06-22 08:34 | RADIOLOGY REPORT ---
EXAMINATION: XR PORTABLE CHEST CLINICAL INFORMATION: 41-year-old man with cough. COMPARISON: None. TECHNIQUE: Portable view of the chest was obtained. FINDINGS: Image quality is limited by patient body habitus. Lung volumes are low. Patchy perihilar and bibasilar airspace opacities could reflect multifocal consolidation or pulmonary edema. There is moderate cardiomegaly. There may be small bilateral effusions. IMPRESSION: Somewhat limited exam demonstrating low lung volumes and patchy nonspecific bibasilar airspace opacities suggesting edema versus multifocal consolidation.
--- NOTE | 2016-06-22 14:22 | PN- General Surgery ---
Surgical Brief Attending Note Brief Attending Note: Apparently dermatology recommends skin biopsy. I was consulted to perform the procedure. Ask them which area should be biopsied then I'll do it. Bear in mind that tissue will not begin to be processed until Saturday.
[2016-06-22 14:32] LABS: PTT 30 SEC (25-37)
--- NOTE | 2016-06-22 16:08 | Event Note ---
Event Note Event Note: Spoke to [facility]. They agreed to answer his sleep study today and re book later. Patient will not be charged for canceling today's appointment because he is in the hospital.
[2016-06-22 16:24] VITALS: BP 146/76
--- NOTE | 2016-06-22 16:35 | Cons- Infect Disease ---
General Information and HPI Consulting Request Date of Consult: 06/22/16 Requested By: ALLEGRA HOUSTON MD Reason for Consult: Petechial rash/rule out cellulitis Source of Information: patient History of Present Illness: This is a 41-year-old morbidly obese man with no significant past history, with an episode of diarrhea, fevers and chills one week prior to admission, which resolved after 1-2 days, admitted on June 21 after presenting to the emergency room with a three-day history of a petechial rash on his upper and lower extremities and trunk, nonpruritic and nonpainful, and an open ulcer in the left popliteal area, with no documented fevers or chills, and with no associated symptoms. On admission he was febrile to 101.7. Laboratory data revealed a white blood cell count of 12,000, ESR 83, BUN/creatinine 16 and 0.9, with normal liver enzymes, INR 1.20. HIV was negative. Chest x-ray revealed low lung volumes with patchy peripheral and bibasilar airspace opacities. Dopplers of both lower extremity were negative. He was begun on Unasyn and given IV fluids, with apparent defervescence and decrease in his white blood cell count. He denies any new medications, but did start a new vitamin several weeks prior to admission and takes occasional Advils. He has had no recent travel or sick contacts. He is not sexually active. Allergies/Medications Allergies: Coded Allergies: No Known Allergies (06/21/16) Home Med List: Cholecalciferol (Vitamin D3) (D3-50) 50,000 UNIT CAPSULE 1 TAB PO ONCE A WEEK VITAMINS (Reported) Past History Travel History Traveled to [place] past 21 day No Medical History Neurological: NONE Cardiovascular: NONE Respiratory: NONE Gastrointestinal: MORBID OBESITY Hepatic: NONE Renal: NONE Psychiatric: NONE Endocrine: NONE Isolation History: Standard Surgical History Surgical History: non-contributory Family History Relations & Conditions If Any: FATHER FH: hypertension FH: stroke MOTHER FH: diabetes mellitus Psychosocial History Where Do You Live? Home Who Do You Live With? self Services at Home: None Primary Language: Vietnamese Smoking Status: Never Smoked ETOH Use: occasional use Illicit Drug Use: denies illicit drug use Functional Ability ADLs Independent: dressing, eating, toileting, bathing. Ambulation: independent IADLs Independent: shopping, housework, finances, food prep, telephone, transportation , medication admin. 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 Cardiovascular: Reports: edema (both lower extremities). GI: Reports: diarrhea (one week prior to admission). Musculoskeletal: Denies: joint pain. All Other Systems: Reviewed and Negative Exam & Diagnostic Data Last 24 Hrs of Vital Signs/I&O Vital Signs Date Time Temp Pulse Resp B/P Pulse O2 O2 Flow FiO2 Ox Delivery Rate 06/22 1624 98.3 91 20 146/76 96 06/22 1343 98.8 92 20 158/73 95 Room Air 06/22 0818 100.9 92 20 135/66 97 Room Air 06/22 0454 100.2 06/21 1931 101.7 98 20 133/69 100 Room Air 06/21 1644 98.5 113 158/92 94 Intake & Output 06/22 1600 06/22 0800 06/22 0000 Intake Total 1240 2100 Output Total Balance 1240 2100 Intake, IV 1000 2100 Intake, Oral 240 Patient 630 lb Weight Physical Exam Other Physical Findings: He is awake and alert in no acute distress. MAXIMUM TEMPERATURE 101.7. Skin reveals a petechial rash on his upper and lower extremities and trunk, with pustular lesions on the lower extremities. HEENT exam is negative. Neck is supple with no adenopathy. Lungs are clear. Heart regular rhythm with no murmur. Abdomen is obese, soft, nontender with positive bowel sounds. Back no CVA tenderness. Extremities left popliteal ulceration, with mild surrounding erythema; mild erythema over both lower extremities, nontender to palpation and not warm, with no cyanosis, clubbing or edema. Neuro is without focality. Last 24 Hours of Lab Results: Laboratory Tests 06/22 06/22 0930 0528 Chemistry Troponin I (<0.11 ng/ml) < 0.01 Immunology Rheum Factor Semi-Quant (<12 IU/Ml) < 8.6 Toxicology Urine Opiates Screen (>2000 NG/ML) < 100.00 Methadone Screen (>300 NG/ML) < 40 Barbiturate Screen (>200 NG/ML) < 60 Ur Phencyclidine Scrn (>25 NG/ML) < 6.00 Amphetamines Screen (>1000 NG/ML) < 100 U Benzodiazepines Scrn (>200 NG/ML) < 85 Urine Cocaine Screen (>300 NG/ML) < 50 Urine Cannabis Screen (>50 NG/ML) < 5.00 Urines Urine Color (YEL,AMB,STR) YEL Urine Clarity (CLEAR) CLEAR Urine pH (5.0 - 8.0) 6.0 Ur Specific [place] (1.001 - 1.035) >= 1.030 Urine Protein (NEG,<30 MG/DL) TRACE H Urine Ketones (NEG) NEG Urine Nitrite (NEG) NEG Urine Bilirubin (NEG) NEG Urine Urobilinogen (0.1 - 1.0 EU/dl) 1.0 Ur Leukocyte Esterase (NEG) NEG Ur Microscopic SEDIMENT EXAMINED Urine RBC (0 - 5 /HPF) RARE Urine WBC (0 - 2 /HPF) 3-5 H Urine Mucus (FEW,NONE) MANY H Urine Hemoglobin (NEG) NEG Urine Glucose (N MG/DL) NEG 06/22 06/22 06/21 0528 0125 2309 Chemistry Sodium (137 - 145 mmol/L) 139 Potassium (3.5 - 5.1 mmol/L) 4.4 Chloride (98 - 107 mmol/L) 100 Carbon Dioxide (22 - 30 mmol/L) 30 Anion Gap (5 - 16) 9 BUN (9 - 20 mg/dL) 14 Creatinine (0.7 - 1.2 mg/dL) 0.8 Estimated GFR (>60 ml/min) > 60 BUN/Creatinine Ratio (7 - 25 %) 17.5 Lactic Acid (0.7 - 2.1 mmol/L) 0.7 1.0 Triglycerides (<150 mg/dL) 77 Cholesterol (< 200 MG/DL) 137 LDL Cholesterol, Calc (65 - 129 mg/dL) 82 HDL Cholesterol (40 - 60 mg/dL) 40 Cholesterol/HDL Ratio (0.00 - 4.88 %) 3 Coagulation APTT (25 - 37 SEC) 30 Fibrinogen Activity (200 - 393 MG/DL) 430 H Fibrin Degrad Products (< 10 ug/ml) >10 but < 40 ug/ml H Hematology CBC w Diff NO MAN DIFF REQ WBC (4.8 - 10.8 /CUMM) 7.6 RBC (4.70 - 6.10 /CUMM) 3.75 L Hgb (14.0 - 18.0 G/DL) 9.6 L Hct (42 - 52 %) 29.1 L MCV (80.0 - 94.0 FL) 77.5 L MCH (27.0 - 31.0 PG) 25.5 L RDW (11.5 - 14.5 %) 17.3 H Plt Count (130 - 400 /CUMM) 330 MPV (7.4 - 10.4 FL) 7.4 Gran % (42.2 - 75.2 %) 67.0 Lymphocytes % (20.5 - 51.1 %) 21.5 Monocytes % (1.7 - 9.3 %) 10.3 H Eosinophils % (0 - 5 %) 0.9 Basophils % (0.0 - 2.0 %) 0.3 Absolute Granulocytes (1.4 - 6.5 /CUMM) 5.1 Absolute Lymphocytes (1.2 - 3.4 /CUMM) 1.6 Absolute Monocytes (0.10 - 0.60 /CUMM) 0.8 H Absolute Eosinophils (0.0 - 0.7 /CUMM) 0.1 Absolute Basophils (0.0 - 0.2 /CUMM) 0 PUBS MCHC (33.0 - 37.0 G/DL) 32.9 L ESR Westergren (0 - 10 MM) 83 H Immunology LUIS ANGEL Titer ND Anti-Nuclear Antibody (NEG,1:40) NEG 1:40 IFA ASSAY Serology RPR Titer/FTA (NONREACTIVE) Pending Lyme Disease Antibody (RATIO) 0.20 06/21 1654 1654 Chemistry Sodium (137 - 145 mmol/L) 140 Potassium (3.5 - 5.1 mmol/L) 4.8 Chloride (98 - 107 mmol/L) 96 L Carbon Dioxide (22 - 30 mmol/L) 30 Anion Gap (5 - 16) 14 BUN (9 - 20 mg/dL) 16 Creatinine (0.7 - 1.2 mg/dL) 0.9 Estimated GFR (>60 ml/min) > 60 BUN/Creatinine Ratio (7 - 25 %) 17.8 Glucose (65 - 99 mg/dL) 114 H Hemoglobin A1c Pending Lactic Acid (0.7 - 2.1 mmol/L) 1.3 Calcium (8.4 - 10.2 mg/dL) 9.3 Iron (49 - 181 ug/dL) 15 L TIBC (261 - 462 ug/dL) 323 Ferritin (17.9 - 464 ng/mL) 107.0 Total Bilirubin (0.2 - 1.3 mg/dL) 0.6 AST (17 - 59 U/L) 21 ALT (21 - 72 U/L) 20 L Alkaline Phosphatase (< 127 U/L) 84 C-Reactive Prot, Quant (<1.0 mg/dL) 7.6 H Total Protein (6.3 - 8.2 g/dL) 7.9 Albumin (3.5 - 5.0 g/dL) 3.8 Globulin (1.9 - 4.2 gm/dL) 4.1 Albumin/Globulin Ratio (1.1 - 2.2 %) 0.9 L Folate (2.76 - 20.0 ng/mL) 11.3 TSH (0.270 - 4.200 uIU/mL) 3.550 Coagulation PT (9.4 - 12.5 SEC) 12.6 H INR (0.90 - 1.17) 1.20 H D-Dimer (70 - 232 ng/ml) 2587 H Hematology CBC w Diff NO MAN DIFF REQ WBC (4.8 - 10.8 /CUMM) 11.6 H RBC (4.70 - 6.10 /CUMM) 4.66 L Hgb (14.0 - 18.0 G/DL) 11.7 L Hct (42 - 52 %) 36.2 L MCV (80.0 - 94.0 FL) 77.7 L MCH (27.0 - 31.0 PG) 25.1 L RDW (11.5 - 14.5 %) 17.1 H Plt Count (130 - 400 /CUMM) 402 H MPV (7.4 - 10.4 FL) 7.7 Gran % (42.2 - 75.2 %) 80.9 H Lymphocytes % (20.5 - 51.1 %) 11.4 L Monocytes % (1.7 - 9.3 %) 7.2 Eosinophils % (0 - 5 %) 0.3 Basophils % (0.0 - 2.0 %) 0.2 Absolute Granulocytes (1.4 - 6.5 /CUMM) 9.4 H Absolute Lymphocytes (1.2 - 3.4 /CUMM) 1.3 Absolute Monocytes (0.10 - 0.60 /CUMM) 0.8 H Absolute Eosinophils (0.0 - 0.7 /CUMM) 0 Absolute Basophils (0.0 - 0.2 /CUMM) 0 PUBS MCHC (33.0 - 37.0 G/DL) 32.4 L Serology Hepatitis A IgM Ab (NONREACTIVE) NONREACTIVE Hep Bs Antigen (NONREACTIVE) NONREACTIVE Hep B Core IgM Ab Conf (NONREACTIVE) NONREACTIVE Hepatitis C Antibody (NONREACTIVE) NONREACTIVE HIV 1&2 Ab Western Blot (NONREACTIVE) NONREACTIVE Virus Culture Pending Last 24 Hours of [place] Results: Blood cultures June 21 negative Rapid flu swab June 21 negative Quick strep June 22 negative with throat culture pending Diagnostic Data Recent Imaging Findings: Chest x-ray June 22, personally reviewed, reveals low lung volumes with bibasilar opacities Dopplers of both lower extremities June 21 negative Assessment/Plan Assessment/Plan Impression: This is a 41-year-old morbidly obese man with no significant past medical history admitted on June 19 with a three-day history of a petechial rash on his extremities and trunk, found to be febrile with petechial and pustular lesions and a mild leukocytosis. His history does not reveal any obvious precipitating factors, such as new medications or viral symptoms, to explain his rash. A vasculitis has been considered, though the recent onset of the rash in the absence of any other symptoms makes this less likely. It is not clear that he has a cellulitis, with minimal erythema over his lower extremities, with no tenderness or warmth, though he does have an ulceration on the left popliteal area, which could represent a localized area of cellulitis. His white blood cell count was mildly elevated, but it has normalized with IV fluids, suggesting it was secondary to hemoconcentration. The fever could be secondary to this localized cellulitis or to whatever process is causing his petechial/purpuric rash. Suggestion: 1. Would pursue skin biopsy 2. Dermatology input 3. Continue Unasyn 3 g IV every 6 hours Consult Acknowledgment - Thank you for your consult request.
--- NOTE | 2016-06-22 17:09 | Cons- Rheumatology ---
General Information and HPI Consulting Request Date of Consult: 06/22/16 Requested By: ALLEGRA HOUSTON MD Reason for Consult: Evaluate for vasculitis Source of Information: patient Exam Limitations: no limitations History of Present Illness: Pertinent past medical history who came to the hospital today because of a diffuse rash on his extremities. He denies feeling ill with fever or arthralgias. Approximately 10 days ago he did feel chills and malaise around [place] time. He had only 1 episode of diarrhea. He came to the urgent care center today because of a changing diffuse rash that is not pruritic or painful. It involves his arms and lower abdomen and his legs. He has had cellulitis in the past so he thought this may be related Allergies/Medications Allergies: Coded Allergies: No Known Allergies (06/21/16) Home Med List: Cholecalciferol (Vitamin D3) (D3-50) 50,000 UNIT CAPSULE 1 TAB PO ONCE A WEEK VITAMINS (Reported) Current Medications: Current Medications Sig/Mina Start time Last Medication Dose Route Stop Time Status Admin Acetaminophen 650 MG Q6P PRN 06/21 2230 AC PO Ampicillin Sodium/ 0 .STK-MED ONE 06/22 1127 DC Sulbactam Sodium .ROUTE Ampicillin Sodium/ 0 .STK-MED ONE 06/22 0500 DC Sulbactam Sodium .ROUTE Ampicillin Sodium/ 3,000 MG Q6 06/21 2359 AC 06/22 Sulbactam Sodium IV 1156 Sodium Chloride 100 ML Ampicillin Sodium/ 0 .STK-MED ONE 06/21 1923 DC Sulbactam Sodium .ROUTE Ampicillin Sodium/ 3,000 MG ONCE ONE 06/21 1815 DC 06/21 Sulbactam Sodium IV 06/21 1844 1926 Sodium Chloride 100 ML Enoxaparin Sodium 0 .STK-MED ONE 06/22 1127 DC SC Enoxaparin Sodium 40 MG DAILY 06/22 1000 AC 06/22 SC 1150 Ferrous Sulfate 325 MG BID 06/22 1000 CAN PO Ibuprofen 400 MG Q6P PRN 06/21 2230 CAN PO Ketorolac 0 .STK-MED ONE 06/21 2001 DC Tromethamine .ROUTE Ketorolac 30 MG ONCE ONE 06/21 1999 DC 06/21 Tromethamine IV 06/21 Nystatin 1 ARIADNA TID PRN 06/21 2245 AC TOP Oxycodone HCl 10 MG Q6P PRN 06/21 2230 AC PO Sodium Chloride 1,000 ML .Q8H 06/21 2230 AC 06/22 IV 0901 Sodium Chloride 1,000 ML BOLUS ONE 06/21 1999 DC 06/21 IV 06/21 Triamcinolone 1 ARIADNA BID 06/22 1409 AC Acetonide TOP Review of Systems Review of Systems: He denies headaches pleuritic chest pain or swollen joints. Past History Travel History Traveled to [place] past 21 day No Medical History Neurological: NONE Cardiovascular: NONE Respiratory: NONE Gastrointestinal: MORBID OBESITY Hepatic: NONE Renal: NONE Psychiatric: NONE Endocrine: NONE Surgical History Surgical History: non-contributory Family History Relations & Conditions If Any: FATHER FH: hypertension FH: stroke MOTHER FH: diabetes mellitus Psychosocial History Where Do You Live? Home Who Do You Live With? self Services at Home: None Primary Language: Sierra Leonean Smoking Status: Never Smoked ETOH Use: occasional use Illicit Drug Use: denies illicit drug use Functional Ability ADLs Independent: dressing, eating, toileting, bathing. Ambulation: independent IADLs Independent: shopping, housework, finances, food prep, telephone, transportation , medication admin. 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 It is no tenderness or swelling of any is his extremities. He has a symmetrical rash that could be described as punctate erythematous macular lesions on both forearms. His lower abdominal area has a diffuse similar appearing rash. On his lower extremities again he's had multiple small erythematous lesions are nonblanching and not palpable. Assessment/Plan Assessment: Overall I have absolutely no suspicion that this is a primary vasculitis. It should be noted that his LUIS ANGEL is negative as is his rheumatoid factor and sedimentation rate however is elevated at 83. His urinalysis shows trace protein but no red blood cells. This rash could be on an allergic basis. Recommendations: I recommend obtaining an ANCA. Feel a dermatology consultation is in order I would not recommend any systemic treatment such as steroids since the patient is so asymptomatic. Consult Acknowledgment - Thank you for your consult request.
[2016-06-22 17:57] LABS: PTT 30 SEC (25-37)
[2016-06-22 22:30] VITALS: BP 140/76
[2016-06-23 00:31] VITALS: BP 142/82
[2016-06-23 08:11] LABS: ABSOLUTE BASOPHIL COUNT 0 /CUMM (0.0-0.2); ABSOLUTE EOSINOPHIL COUNT 0.1 /CUMM (0.0-0.7); ABSOLUTE GRANULOCYTE CT 4.9 /CUMM (1.4-6.5); ABSOLUTE LYMPH COUNT 1.3 /CUMM (1.2-3.4); ABSOLUTE MONOCYTE COUNT 0.7 /CUMM (0.10-0.60); BASOPHIL % 0.6 % (0.0-2.0); EOSINOPHIL % 1.1 % (0-5); GRANULOCYTE % 69.8 % (42.2-75.2); HEMATOCRIT 29.4 % (42-52); MEAN CORPUSCULAR HGB 25.5 PG (27.0-31.0); MEAN CORPUSCULAR HGB CONC 32.5 G/DL (33.0-37.0); MEAN CORPUSCULAR VOLUME 78.5 FL (80.0-94.0); PLATELET COUNT 313 /CUMM (130-400); RBC DISTRIBUTION WIDTH 17.8 % (11.5-14.5); RED BLOOD CELL CT 3.74 /CUMM (4.70-6.10)
[2016-06-23 08:32] VITALS: BP 126/75
--- NOTE | 2016-06-23 10:00 | PN- Housestaff ---
JUANITO BOGGS 06/23/16 1000: Subjective Follow-up For: Generalized Rash Cellulitis Subjective: seen and examined patient. offers no complaints. Denies fever, chills, shortness of breath. Review of Systems Constitutional: Denies: chills, diaphoresis, fever, malaise, weakness, unexplained weight loss. Cardiovascular: Denies: chest pain, edema, orthopena, palpitations, peripheral edema, syncope. Respiratory: Denies: cough, hemoptysis, orthopnea, short of breath, sputum production, stridor, wheezing. Skin: Reports: rash. Objective Last 24 Hrs of Vital Signs/I&O Vital Signs Date Time Temp Pulse Resp B/P Pulse O2 O2 Flow FiO2 Ox Delivery Rate 06/23 0832 98.4 94 18 126/75 93 Room Air 06/23 0031 99.6 92 20 142/82 95 06/22 2230 98.2 91 20 140/76 95 Room Air 06/22 1624 98.3 91 20 146/76 96 06/22 1343 98.8 92 20 158/73 95 Room Air Intake & Output 06/23 1600 06/23 0800 06/23 0000 Intake Total 240 Output Total Balance 240 Intake, Oral 240 Patient 630 lb Weight Physical Exam General Appearance: Alert, Oriented X3, Cooperative, No Acute Distress, morbidly obesity Cardiovascular: Regular Rate, Normal S1, Normal S2 Lungs: Clear to Auscultation, Normal Air Movement Extremities: reddish nonraised, nonpalpable lesions seen in left upper extremity, bilateral lower extremity swelling, redness not worsened from yesterday Current Medications: Current Medications Sig/Mina Start time Last Medication Dose Route Stop Time Status Admin Acetaminophen 650 MG Q6P PRN 06/21 2230 AC PO Ampicillin Sodium/ 0 .STK-MED ONE 06/22 1127 DC Sulbactam Sodium .ROUTE Ampicillin Sodium/ 3,000 MG Q6 06/21 2359 AC 06/23 Sulbactam Sodium IV 0524 Sodium Chloride 100 ML Enoxaparin Sodium 0 .STK-MED ONE 06/22 1127 DC SC Enoxaparin Sodium 40 MG DAILY 06/22 1000 AC 06/23 SC 0937 Nystatin 1 ARIADNA TID PRN 06/21 2245 AC TOP Oxycodone HCl 10 MG Q6P PRN 06/21 2230 AC PO Sodium Chloride 1,000 ML .Q8H 06/21 2230 AC 06/23 IV 0937 Triamcinolone 1 ARIADNA BID 06/22 1409 AC 06/23 Acetonide TOP 0937 Last 24 Hrs of Lab/Kenn Results Last 24 Hrs of Labs/Mics: Laboratory Tests 06/23/16 0630: Anion Gap 11, Estimated GFR > 60, BUN/Creatinine Ratio 13.8, CBC w Diff NO MAN DIFF REQ, RBC 3.74 L, MCV 78.5 L, MCH 25.5 L, RDW 17.8 H, MPV 8.0, Gran % 69.8, Lymphocytes % 19.0 L, Monocytes % 9.5 H, Eosinophils % 1.1, Basophils % 0.6, Absolute Granulocytes 4.9, Absolute Lymphocytes 1.3, Absolute Monocytes 0.7 H, Absolute Eosinophils 0.1, Absolute Basophils 0, PUBS MCHC 32.5 L 06/23/16 0600: ANCA Cancelled 06/22/16 1720: APTT 30, Complement C3 Pending, Complement C4 Pending Assessment/Plan Assessment: 41 -year-old morbidly obese gentleman with no significant past medical history current admission to general medicine floor for petechial type rash on extremities and trunk, found to be febrile, bilateral erythema and increased warmth lower extremities, noted to have an elevated white count of 10.1 with left shift without bandemia, elevated d-dimer, CTA ruled out for negative PE. No worsening of the rash noted today. Plan Rash Status post skin biopsy today, await pathology report ID, rheumatology, consulted, appreciate recommendations LUIS ANGEL, RA neg, elevated sed rate indicating inflammation Cellulitis Tmax 99.6, white count trended down Continue IV Unasyn #Diet: Regular diet #DVT ppx: sc Lovenox #Code status: Full code #Diet: Regular diet #DVT ppx: ALPS, avoiding heparin products for now #Code status: Full code Problem List: 1. Rash 2. Cellulitis Pain Ratin Pain Location: na Pain Goal: Pain 4 or less Pain Plan: current regimen Tomorrow's Labs & Rationales: cbc/bep ALLEGRA HOUSTON MD 06/23/16 1437: Attending MD Review Statement Attending Statement Attending MD Statement: examined this patient, discuss w/resident/PA/VOICE STUDIES DIRECTOR, agreed w/resident/PA/VOICE STUDIES DIRECTOR, reviewed EMR data (avail) Attending Assessment/Plan: 41M PMH morbid obesity, bilateral LE chronic venous stasis presenting with acute onset of non-pruritic peticheal rash in clusters on bilateral arms, bilateral legs. RLE appears to have acute cellulitis. Rash appears vasculitic in nature, non-blanching, non-pruritic. Normal platelets, but FDP and D-dimer are elevated. Plan - Punch biopsy by surgery of rash for pathology and evaluation for vasculitis - Rheumatology and ID consults - Send complement levels - Follow up vasculitis labs sent yesterday - Follow up cultures - Unasyn for RLE cellulitis - DVT Ppx
--- NOTE | 2016-06-23 11:23 | PN- Student ---
Subjective Subjective: Subjective: Source: Patient History of Present Illness: Mr. Duenas is a 38 y/o M that present to the ER due to a rash. He states that the rash started last Saturday (Jun 18, 2016) and it was localized to the medial aspect of the arms and then radiated to the lower limbs starting on the thighs, buttocks and then moving to the legs. The rash spares the palms, soles and the face. The rash has petechial morphology and has areas that are diffused and areas that are consolidated (specially in the R fore arm, medial aspect). The rash on the legs is accompanied with severe cellulitis starting on mid thigh and covering up to the ankles. The patient denies any pain, itchiness, fever, night sweats and chills. The patient also denies having any pets. He is currently on a bad mood due to lack of sleep and feel feverish since the morning. Upon visiting the patient he only complained on being uncomfortable for being in the hospital. He denies any changes in appetite, nausea, constipation, diarrhea, muscles cramps and changes in urine color. He also denies any changes in the rashes in terms of itchiness and pain associated with it; this information was confirmed by the attending nurse. Allergies/Medications: Allergies -No known allergies Current Home Medications -Vitamin D -Multivitamins Objective Objective: Physical Examination: General: 41 Y/O m with morbid obesity, no signs of distress, afebrile and alert. HEENT: Not assessed. Neck: Not assessed Mouth: Not assessed. Lungs: Not assessed. CV: Not assessed. GI: Petechial rash distributed in the suprapubic area. Genitourinary: Not assessed MSK: Not assessed Upper Extremities: No signs of edema; petechial rash located in the medial aspect of both arms. Lower Extremities: Cellullits bilaterally. Elevated temperature upon palpation bilaterally. Small laceration in the R calf (possibly due to the extent of cellulitis). Neurological: Normal Speech. Additional Notes: There was a line drawn proximally in each of the rashes' distribution; no additional radiation occured overnight. The attending nurse informed that the ALP didn't fit the patient due to the size of the calf given the extent of celullitis. Current Medications Sig/Mina Start time Last Medication Dose Route Stop Time Status Admin Acetaminophen 650 MG Q6P PRN 01/05 2230 AC PO Ampicillin Sodium/ 3,000 MG Q6 06/21 2359 AC 06/23 Sulbactam Sodium IV 1200 Sodium Chloride 100 ML Enoxaparin Sodium 40 MG DAILY 06/22 1000 AC 06/23 SC 0937 Nystatin 1 ARIADNA TID PRN 06/21 2245 AC TOP Oxycodone HCl 10 MG Q6P PRN 06/21 2230 AC PO Sodium Chloride 1,000 ML .Q8H 06/21 2230 AC 06/23 IV 0937 Triamcinolone 1 ARIADNA BID 06/22 1409 AC 06/23 Acetonide TOP 0937 Results Results: Laboratory Tests 06/23/16 0630: Anion Gap 11, Estimated GFR > 60, BUN/Creatinine Ratio 13.8, CBC w Diff NO MAN DIFF REQ, RBC 3.74 L, MCV 78.5 L, MCH 25.5 L, RDW 17.8 H, MPV 8.0, Gran % 69.8, Lymphocytes % 19.0 L, Monocytes % 9.5 H, Eosinophils % 1.1, Basophils % 0.6, Absolute Granulocytes 4.9, Absolute Lymphocytes 1.3, Absolute Monocytes 0.7 H, Absolute Eosinophils 0.1, Absolute Basophils 0, PUBS MCHC 32.5 L 06/23/16 0600: ANCA Cancelled 06/22/16 1720: APTT 30, Complement C3 Pending, Complement C4 Pending 06/22/16 0930: Urine Opiates Screen < 100.00, Methadone Screen < 40, Barbiturate Screen < 60, Ur Phencyclidine Scrn < 6.00, Amphetamines Screen < 100, U Benzodiazepines Scrn < 85, Urine Cocaine Screen < 50, Urine Cannabis Screen < 5.00, Urine Color YEL, Urine Clarity CLEAR, Urine pH 6.0, Ur Specific Howes >= 1.030, Urine Protein TRACE H, Urine Ketones NEG, Urine Nitrite NEG, Urine Bilirubin NEG, Urine Urobilinogen 1.0, Ur Leukocyte Esterase NEG, Ur Microscopic SEDIMENT EXAMINED, Urine RBC RARE, Urine WBC 3-5 H, Urine Mucus MANY H, Urine Hemoglobin NEG, Urine Glucose NEG 06/22/16 0528: Rheum Factor Semi-Quant < 8.6 06/22/1628: Troponin I < 0.01, LUIS ANGEL Titer ND, Anti-Nuclear Antibody NEG 1:40 IFA ASSAY 06/22/16 0528: Anion Gap 9, Estimated GFR > 60, BUN/Creatinine Ratio 17.5, Triglycerides 77, Cholesterol 137, LDL Cholesterol, Calc 82, HDL Cholesterol 40, Cholesterol/HDL Ratio 3, APTT 30, Fibrinogen Activity 430 H, Fibrin Degrad Products >10 but < 40 ug/ml H, CBC w Diff NO MAN DIFF REQ, RBC 3.75 L, MCV 77.5 L, MCH 25.5 L, RDW 17.3 H, MPV 7.4, Gran % 67.0, Lymphocytes % 21.5, Monocytes % 10.3 H, Eosinophils % 0.9, Basophils % 0.3, Absolute Granulocytes 5.1, Absolute Lymphocytes 1.6, Absolute Monocytes 0.8 H, Absolute Eosinophils 0.1, Absolute Basophils 0, PUBS MCHC 32.9 L, ANCA Pending, RPR Titer/FTA Pending, Lyme Disease Antibody 0.20 06/22/16 0125: Lactic Acid 0.7 06/21/16 2309: Lactic Acid 1.0, ESR Westergren 83 H 06/21/16 2013: Virus Culture Pending 06/21/16 1654: Hemoglobin A1c Pending 06/21/16 1654: Anion Gap 14, Estimated GFR > 60, BUN/Creatinine Ratio 17.8, Glucose 114 H, Lactic Acid 1.3, Calcium 9.3, Iron 15 L, TIBC 323, Ferritin 107.0, Total Bilirubin 0.6, AST 21, ALT 20 L, Alkaline Phosphatase 84, C-Reactive Prot, Quant 7.6 H, Total Protein 7.9, Albumin 3.8, Globulin 4.1, Albumin/Globulin Ratio 0.9 L, Folate 11.3, TSH 3.550, PT 12.6 H, INR 1.20 H, D-Dimer 2587 H, CBC w Diff NO MAN DIFF REQ, RBC 4.66 L, MCV 77.7 L, MCH 25.1 L, RDW 17.1 H, MPV 7.7, Gran % 80.9 H, Lymphocytes % 11.4 L, Monocytes % 7.2, Eosinophils % 0.3, Basophils % 0.2, Absolute Granulocytes 9.4 H, Absolute Lymphocytes 1.3, Absolute Monocytes 0.8 H, Absolute Eosinophils 0, Absolute Basophils 0, PUBS MCHC 32.4 L, Hepatitis A IgM Ab NONREACTIVE, Hep Bs Antigen NONREACTIVE, Hep B Core IgM Ab Conf NONREACTIVE, Hepatitis C Antibody NONREACTIVE, HIV 1&2 Ab Western Blot NONREACTIVE 06/21/16 1000: Ehrlichia DNA (PCR) Pending Microbiology 06/21 2230 URINE ROUT: Urine Culture - CAN Cancelled: SPECIMEN NOT RECEIVED IN LABORATORY 06/21 2230 STOOL: Stool Culture - CAN Cancelled: SPECIMEN NOT RECEIVED IN LABORATORY 06/21 2212 BLOOD: Blood Culture - RES 06/21 2208 BLOOD: Blood Culture - RES Vital Signs Date Time Temp Pulse Resp B/P Pulse O2 O2 Flow FiO2 Ox Delivery Rate 06/23 0832 98.4 94 18 126/75 93 Room Air Intake & Output 06/23 1600 Intake Total 1595 Output Total Balance 1595 Intake, IV 875 Intake, Oral 720 Number 0 Bowel Movements Patient 630 lb Weight Assessment/Plan Assessment: Assessment: Mr. Duenas is a 41 y/o M with morbid obesity and a history of hypertension. The patient is in no signs of distress but is currently upset about the situation and for being in the hospital. No changes were appreciated regarding the rash radiation in any of the involved limbs. The patient denied any new symptoms associatd with the Chief Complaint. Additional notes: Skin biopsy was performed on the rash. Problem List: 1) Petechial rash 2) Lower Limbs Cellulitis Plan: - Follow up on ordered studies that are pending. - Follow up medication (Ampicillin, Nystatin, Topical Steroids, Lovenox). - Schedule a manager commodities visit to assess rash. - Schedule a visit with the Physical Therapist to assess ambulating ability. - Follow up on Glycemic levels and monitor blood pressure and temperature closely. - Follow up on nutrionist visit to assess morbid obesity.
--- NOTE | 2016-06-23 11:59 | Procedure ---
Minor Surgical Procedure Note Date of Procedure: 06/23/16 Procedure Note: 2-2mm skin biopsy specimen taken from active rash on right forearm. 1ml 1% lidcaine with epi. tolerated procedure. path pending.
[2016-06-23 16:11] VITALS: BP 162/70
[2016-06-24 00:40] VITALS: BP 136/71
[2016-06-24 08:30] VITALS: BP 162/79
[2016-06-24 08:35] LABS: ABSOLUTE BASOPHIL COUNT 0 /CUMM (0.0-0.2); ABSOLUTE EOSINOPHIL COUNT 0.1 /CUMM (0.0-0.7); ABSOLUTE GRANULOCYTE CT 6.5 /CUMM (1.4-6.5); ABSOLUTE LYMPH COUNT 1.3 /CUMM (1.2-3.4); ABSOLUTE MONOCYTE COUNT 0.6 /CUMM (0.10-0.60); BASOPHIL % 0.5 % (0.0-2.0); EOSINOPHIL % 0.9 % (0-5); GRANULOCYTE % 76.3 % (42.2-75.2); MEAN CORPUSCULAR HGB 25.5 PG (27.0-31.0); MEAN CORPUSCULAR HGB CONC 32.8 G/DL (33.0-37.0); MEAN PLATELET VOLUME 7.9 FL (7.4-10.4); PLATELET COUNT 342 /CUMM (130-400); RBC DISTRIBUTION WIDTH 17.5 % (11.5-14.5); RED BLOOD CELL CT 3.98 /CUMM (4.70-6.10); WHITE BLOOD CELL COUNT 8.5 /CUMM (4.8-10.8)
--- NOTE | 2016-06-24 08:47 | PN- Housestaff ---
Assessment/Plan Assessment: 41 -year-old morbidly obese gentleman with no significant past medical history current admission to general medicine floor for petechial type rash on extremities and trunk, found to be febrile, bilateral erythema and increased warmth lower extremities, noted to have an elevated white count of 10.1 with left shift without bandemia, elevated d-dimer, CTA ruled out for negative PE. No worsening of the rash noted today. Plan Rash Status post skin biopsy today, await pathology report ID, rheumatology, consulted, appreciate recommendations LUIS ANGEL, RA neg, elevated sed rate indicating inflammation Cellulitis Tmax 99.6, white count trended down Continue IV Unasyn #Diet: Regular diet #DVT ppx: sc Lovenox #Code status: Full code #Diet: Regular diet #DVT ppx: ALPS, avoiding heparin products for now #Code status: Full code
--- NOTE | 2016-06-24 08:59 | PN- Housestaff ---
JUANITO BOGGS 06/24/16 0859: Subjective Follow-up For: Rash Cellulitis Subjective: Seen and examined patient feels well once to go home today Review of Systems Constitutional: Denies: chills, diaphoresis, fever, malaise, weakness, unexplained weight loss. Cardiovascular: Denies: chest pain, edema, orthopena, palpitations, peripheral edema, syncope. Respiratory: Denies: cough, hemoptysis, orthopnea, short of breath, sputum production, stridor, wheezing. Objective Last 24 Hrs of Vital Signs/I&O Vital Signs Date Time Temp Pulse Resp B/P Pulse O2 O2 Flow FiO2 Ox Delivery Rate 06/24 08 98.5 87 20 162/79 93 Room Air 06/24 0040 98.6 88 20 136/71 95 06/23 1611 98.3 93 20 162/70 94 Room Air Intake & Output 06/24 1600 06/24 0800 06/24 0000 Intake Total 300 525 Output Total Balance 300 525 Intake, IV 225 Intake, Oral 300 300 Physical Exam General Appearance: Alert, Oriented X3, No Acute Distress Cardiovascular: Normal S1, Normal S2 Lungs: Clear to Auscultation, Normal Air Movement Extremities: improving erthyema noted Current Medications: Current Medications Sig/Mina Start time Last Medication Dose Route Stop Time Status Admin Acetaminophen 650 MG Q6P PRN 06/21 2230 DCD PO Ampicillin Sodium/ 3,000 MG Q6 06/21 2359 DCD 06/24 Sulbactam Sodium IV 0704 Sodium Chloride 100 ML Enoxaparin Sodium 40 MG DAILY 06/22 1000 DCD 06/24 SC 0928 Nystatin 1 ARIADNA TID PRN 06/21 2245 DCD TOP Oxycodone HCl 10 MG Q6P PRN 06/21 2230 DCD PO Sodium Chloride 1,000 ML .Q8H 06/21 2230 DC 06/23 IV 1726 Triamcinolone 1 ARIADNA BID 06/22 1409 DCD 06/24 Acetonide TOP 0928 Last 24 Hrs of Lab/Kenn Results Last 24 Hrs of Labs/Mics: Laboratory Tests 06/24/16 0715: Anion Gap 12, Estimated GFR > 60, BUN/Creatinine Ratio 11.3, CBC w Diff NO MAN DIFF REQ, RBC 3.98 L, MCV 78.0 L, MCH 25.5 L, RDW 17.5 H, MPV 7.9, Gran % 76.3 H, Lymphocytes % 15.3 L, Monocytes % 7.0, Eosinophils % 0.9, Basophils % 0.5, Absolute Granulocytes 6.5, Absolute Lymphocytes 1.3, Absolute Monocytes 0.6 , Absolute Eosinophils 0.1, Absolute Basophils 0, PUBS MCHC 32.8 L Assessment/Plan Assessment: 41 -year-old morbidly obese gentleman with no significant past medical history current admission to general medicine floor for petechial type rash on extremities and trunk, found to be febrile, bilateral erythema and increased warmth lower extremities, noted to have an elevated white count of 10.1 with left shift without bandemia, elevated d-dimer, CTA ruled out for negative PE. Patient is wishing to leave and is medically stable to be discharged today Plan Rash Status post skin biopsy today, await pathology report Will be discharged on Augmentin for 5 more days ID, rheumatology, consulted, appreciate recommendations LUIS ANGEL, RA neg, elevated sed rate indicating inflammation Referral to Dr. Linares and Dr. Guerra given Cellulitis Tmax 99.6, white count trended down Continue by mouth Augmentin 500 a #Diet: Regular diet #DVT ppx: sc Lovenox #Code status: Full code #Diet: Regular diet #DVT ppx: ALPS, avoiding heparin products for now #Code status: Full code Problem List: 1. Rash 2. Cellulitis Pain Ratin Pain Location: Not applicable Pain Goal: Pain 4 or less Pain Plan: current regimen Tomorrow's Labs & Rationales: None required ALLEGRA HOUSTON MD 06/24/163: Attending MD Review Statement Attending Statement Attending MD Statement: examined this patient, discuss w/resident/PA/PROPELLER ENGINEER, agreed w/resident/PA/PROPELLER ENGINEER, reviewed EMR data (avail) Attending Assessment/Plan: 41M PMH morbid obesity, bilateral LE chronic venous stasis presenting with acute onset of non-pruritic peticheal rash in clusters on bilateral arms, bilateral legs. RLE appears to have acute cellulitis. Rash appears vasculitic in nature, non-blanching, non-pruritic. Normal platelets, but FDP and D-dimer are elevated. Plan - Punch biopsy done, awaiting pathology - Follow up vasculitis labs sent yesterday - Follow up cultures - Augmetin for cellulitis - Stable for discharge with outpatient dermatology and rheumatology follow up
[2016-06-24] MEDS ORDERED: AUGMENTIN 875-1 EACH PO (11:18)
[2016-06-24] MEDS ORDERED: TRIAMCINOLONE A15 G1 TOP (11:23)
--- NOTE | 2016-06-24 11:26 | Patient Discharge Instructions ---
Discharge Instructions General Discharge Information You were seen/treated for: Rash Cellulitis Special Instructions: Follow up with your new PCP Dr. Richey Please follow-up with your hair spinner Kavin Guerra MD within 2 weeks of discharge please follow-up with your business analysis consultant Dr. Linares within weeks of discharge Acute Coronary Syndrome Inclusion Criteria At DC or during hospital stay patient has or had the following: ACS DIAGNOSIS No Discharge Core Measures Meds if any: Prescribed or Continued at Discharge GIDEON/ARB if EF <40% No Meds if any: NOT Prescribed or Continued at Discharge Congestive Heart Failure Inclusion Criteria At DC or during hospital stay patient has or had the following: CHF DIAGNOSIS No Discharge Core Measures Meds if any: Prescribed or Continued at Discharge Meds if any: NOT Prescribed or Continued at Discharge Cerebrovascular accident Inclusion Criteria At DC or during hospital stay patient has or had the following: CVA/TIA Diagnosis No Discharge Core Measures Meds if any: Prescribed or Continued at Discharge Meds if any: NOT Prescribed or Continued at Discharge Venous thromboembolism Inclusion Criteria VTE Diagnosis No VTE Type NONE VTE Confirmed by (Test) NONE Discharge Core Measures - Per Current guidelines, there needs to be overlap - treatment for the first 5 days of Warfarin therapy. - If discharged on Warfarin prior to 5 days of - overlap therapy, the patient will need to be - assessed for post discharge needs including - *Post discharge parental anticoagulation - *Warfarin and/or parental anticoagulation education - *Follow up date to check INR post discharge At least 5 days overlap therapy as Inpatient No Meds if any: Prescribed or Continued at Discharge Note: Overlap Therapy is Warfarin and Anticoagulant Meds if any: NOT Prescribed or Continued at Discharge
--- NOTE | 2016-06-24 12:24 | PN- Infect Dx ---
Subjective Subjective: Afebrile. He feels well with no complaints Objective Last 24 Hrs of Vital Signs/I&O Vital Signs Date Time Temp Pulse Resp B/P Pulse O2 O2 Flow FiO2 Ox Delivery Rate 06/24 829 98.5 87 20 162/79 93 Room Air 06/24 0040 98.6 88 20 136/71 95 06/23 1611 98.3 93 20 162/70 94 Room Air Intake & Output 06/24 1600 06/24 0800 06/24 0000 Intake Total 300 525 Output Total Balance 300 525 Intake, IV 225 Intake, Oral 300 300 Physical Exam Other Physical Findings: He is comfortable in no acute distress Skin improvement in the petechial rash of the extremities and trunk Extremities decreased erythema of both lower extremities Results Last 24 Hours of Lab Results: Laboratory Tests 06/24 714 Chemistry Sodium (137 - 145 mmol/L) 137 Potassium (3.5 - 5.1 mmol/L) 4.6 Chloride (98 - 107 mmol/L) 98 Carbon Dioxide (22 - 30 mmol/L) 27 Anion Gap (5 - 16) 12 BUN (9 - 20 mg/dL) 9 Creatinine (0.7 - 1.2 mg/dL) 0.8 Estimated GFR (>60 ml/min) > 60 BUN/Creatinine Ratio (7 - 25 %) 11.3 Hematology CBC w Diff NO MAN DIFF REQ WBC (4.8 - 10.8 /CUMM) 8.5 RBC (4.70 - 6.10 /CUMM) 3.98 L Hgb (14.0 - 18.0 G/DL) 10.1 L Hct (42 - 52 %) 31.0 L MCV (80.0 - 94.0 FL) 78.0 L MCH (27.0 - 31.0 PG) 25.5 L RDW (11.5 - 14.5 %) 17.5 H Plt Count (130 - 400 /CUMM) 342 MPV (7.4 - 10.4 FL) 7.9 Gran % (42.2 - 75.2 %) 76.3 H Lymphocytes % (20.5 - 51.1 %) 15.3 L Monocytes % (1.7 - 9.3 %) 7.0 Eosinophils % (0 - 5 %) 0.9 Basophils % (0.0 - 2.0 %) 0.5 Absolute Granulocytes (1.4 - 6.5 /CUMM) 6.5 Absolute Lymphocytes (1.2 - 3.4 /CUMM) 1.3 Absolute Monocytes (0.10 - 0.60 /CUMM) 0.6 Absolute Eosinophils (0.0 - 0.7 /CUMM) 0.1 Absolute Basophils (0.0 - 0.2 /CUMM) 0 PUBS MCHC (33.0 - 37.0 G/DL) 32.8 L Last 24 Hours of Kenn Results: Blood cultures June 21 negative Assessment/Plan Impression: Stable on Unasyn Day 3 of treatment for possible cellulitis of both lower extremities. The etiology of his petechial rash remains unclear, and he did undergo a skin biopsy 2 days ago. Suggestion: 1. Follow-up skin biopsy 2. Dermatology input 3. Discontinue Unasyn and begin Augmentin XR 2000 mg po every 12 hours for 4 days
--- NOTE | 2016-06-27 22:02 | Discharge Summary ---
Visit Information Visit Dates Admission Date: 06/21/16 Discharge Date: 06/24/16 Hospital Course Course Attending Physician: ALLEGRA HOUSTON MD Primary Care Physician: PATIENT HAS NO PRIMARY CARE DR Harper PCP suggested: Skyler Anthony Faculty Physician Consulting Request: 1 Consulting Specialty: Dermatology Consulting Physician: Dr Zachary Linares Reason for Consult: Skin rash Consulting Request: 2 Consulting Specialty: Infectious Disease Consulting Physician: Dr Haider Abrams Reason for Consult: Sepsis, Fever with rash, Cellulitis Consulting Request: 3 Consulting Specialty: Rheumatology Consulting Physician: Dr Kavin Garcia Reason for Consult: To rule out Vasculitis for the reason of rash and fever, high ESR Hospital Course: Mr Duenas is a 41 year old pleasant gentleman with no significant past medical history other than morbid obesity presented to the Emergency Department with complaints of rashes over his torso and extremities, who was found to have fever on admission. He was evaluated and managed in the general medical floor. On admission, his vitals were stable with temp 98.5, later 101.7 max, pulse 113, resp rate 20, BP 158/92, pulse ox 94% on room air. Initial labs were significant for WBC-11.6, Hb 1107, hct 36.2, plt- 402, normal lytes, CRP 7.6 (high), ESR 83 (high), normal LFT, normal UA with trace protein. PT was 12.6 with INR 1.2, APTT 30, fibronogen activity 430, FDP >10 but <40, D- dimer 2587. TSH normal, folate normal. Further testing showed RA factor <8.6, LUIS ANGEL negative, Hepatitis panel and HIV negative, Lyme disease ab 0.20, negative toxicology screen. Imaging: CXR showed Somewhat limited exam demonstrating low lung volumes and patchy nonspecific bibasilar airspace opacities suggesting edema versus multifocal consolidation. Normal venous Doppler ruling out DVT, left popliteal vein and calf veins not visualized due to patient's body habitus. (Patient does not have tender calves though) #Generalized rash with fever (?diagnosis); and cellulitis of right lower extermity Patient gave history of 3 days history of rash, with fever and chills one week prior to that which had subsided. Rash appeared initially over the trunk/ shoulder, and later proceeded to trunk and extermities, sparing the palm and soles. It is small, multiple, non-blanching, petechial, non-pruritic. Rash appeared to be increasing with new ones over right upper arm after admission too. All this was very non-specific and broadened the differential diagnoses to viral infection, bacterial infection, vasculitis, allergies, among others. Lab data so far was also not specific enough to reach a diagnosis. Dr Linares (last inserter) was consulted, who suggested a skin biopsy for a tissue diagnosis. He got the procedure done by Dr Toussaint (surgeon). Dr Garcia was consulted to rule out the possibility of vasculitis. He later ruled out the possibility and recommended dermatology service and infectious disease as well. Dr Abrams (infectious disease specialist) was also consulted for the reason of unclear diagnosis, who agreed to proceed per last inserter, and not to give systemic steroid until a diagnosis is made, and to wait culture results. Patient was emperically treated with Unasyn for the right lower leg cellulitis. He also had evidence of fungal infection, mostly over intertriginous area. Thus antifungal medication was also given. He was administered topical triamcinolone cream over the rash per dermatology consult. He felt better during the course of stay, and on 06/24/16, he was discharged with Augmentin (antibiotic), and follow-up referral to PCP, Dr Linares , and Dr Garcia. Max temp then was 99.6. Rashes improving. #Anemia Likely of chronic disease, or due to inflammatory process, as the iron is low but TIBC is normal, ferritin normal. Needs follow up with primary care physician. Currently, asymptomatic. #Thrombocytosis Initial platelet count was 402, which needs further follow up as outpatietn PCP service. Non-urgent. #Morbid obesity Patient's BMI is 95.8 mg/m2. 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 -Can be dealt with as outpatient basis. #Possible MEHRAN Patient was initially scheduled for sleep later study on 06/22/16, and as he was admitted, his appointment was cancelled per patient's request at [facility]. -He needs a sleep study later as an outpatient. He needs to follow up with PCP for the coordination and management. #Regular diet #DVT prophylaxis with ALPS, avoided heparin products #He holds a full code status. Complications: None Allergies: Coded Allergies: No Known Allergies (06/21/16) Significant Procedures: Skin biopsy: Date of Procedure: 06/23/16 Procedure Note: 2-2mm skin biopsy specimen taken from active rash on right forearm. 1ml 1% lidcaine with epi. tolerated procedure. path pending. DICTATED BY: WALESKA TOUSSAINT MD DATE/TIME DICTATED:06/23/161157 [facility] DATE/TIME TRANSCRIBED:06/23/161157 REPORT NUMBER:[id number] Pertinent Lab Results: 06/24/16 0715: Anion Gap 12, Estimated GFR > 60, BUN/Creatinine Ratio 11.3, CBC w Diff NO MAN DIFF REQ, RBC 3.98 L, MCV 78.0 L, MCH 25.5 L, RDW 17.5 H, MPV 7.9, Gran % 76.3 H, Lymphocytes % 15.3 L, Monocytes % 7.0, Eosinophils % 0.9, Basophils % 0.5, Absolute Granulocytes 6.5, Absolute Lymphocytes 1.3, Absolute Monocytes 0.6 , Absolute Eosinophils 0.1, Absolute Basophils 0, PUBS MCHC 32.8 L 06/23/16 0630: Anion Gap 11, Estimated GFR > 60, BUN/Creatinine Ratio 13.8, CBC w Diff NO MAN DIFF REQ, RBC 3.74 L, MCV 78.5 L, MCH 25.5 L, RDW 17.8 H, MPV 8.0, Gran % 69.8, Lymphocytes % 19.0 L, Monocytes % 9.5 H, Eosinophils % 1.1, Basophils % 0.6, Absolute Granulocytes 4.9, Absolute Lymphocytes 1.3, Absolute Monocytes 0.7 H, Absolute Eosinophils 0.1, Absolute Basophils 0, PUBS MCHC 32.5 L 06/23/16 0600: ANCA Cancelled 06/22/16 1720: APTT 30, Complement C3 Pending, Complement C4 Pending 06/22/16 1720: APTT 30, Complement C3 Pending, Complement C4 Pending 06/22/16 0930: Urine Opiates Screen < 100.00, Methadone Screen < 40, Barbiturate Screen < 60, Ur Phencyclidine Scrn < 6.00, Amphetamines Screen < 100, U Benzodiazepines Scrn < 85, Urine Cocaine Screen < 50, Urine Cannabis Screen < 5.00, Urine Color YEL, Urine Clarity CLEAR, Urine pH 6.0, Ur Specific [place] >= 1.030, Urine Protein TRACE H, Urine Ketones NEG, Urine Nitrite NEG, Urine Bilirubin NEG, Urine Urobilinogen 1.0, Ur Leukocyte Esterase NEG, Ur Microscopic SEDIMENT EXAMINED, Urine RBC RARE, Urine WBC 3-5 H, Urine Mucus MANY H, Urine Hemoglobin NEG, Urine Glucose NEG 06/22/16 0528: Troponin I < 0.01, Rheum Factor Semi-Quant < 8.6 06/22/16527: Anion Gap 9, Estimated GFR > 60, BUN/Creatinine Ratio 17.5, Triglycerides 77, Cholesterol 137, LDL Cholesterol, Calc 82, HDL Cholesterol 40, Cholesterol/HDL Ratio 3, APTT 30, Fibrinogen Activity 430 H, Fibrin Degrad Products >10 but < 40 ug/ml H, CBC w Diff NO MAN DIFF REQ, RBC 3.75 L, MCV 77.5 L, MCH 25.5 L, RDW 17.3 H, MPV 7.4, Gran % 67.0, Lymphocytes % 21.5, Monocytes % 10.3 H, Eosinophils % 0.9, Basophils % 0.3, Absolute Granulocytes 5.1, Absolute Lymphocytes 1.6, Absolute Monocytes 0.8 H, Absolute Eosinophils 0.1, Absolute Basophils 0, PUBS MCHC 32.9 L, LUIS ANGEL Titer ND, Anti-Nuclear Antibody NEG 1:40 IFA ASSAY, RPR Titer/FTA Pending, Lyme Disease Antibody 0.20 06/22/16 0125: Lactic Acid 0.7 06/21/16 2309: Lactic Acid 1.0, ESR Westergren 83 H Disposition Summary Disposition Principal Diagnosis: Skin rash, awaiting skin biopsy result Cellulitis Additional Diagnosis: Morbid obesity (BMI 95.8 kg/m2); Thrombocytosis; Microcytic Anemia; Fungal infection at intertriginous area (multiple sites) Discharge Disposition: home or self care Discharge Instructions General Discharge Information Code Status: Full Code Patient's Diet: Regular diet, Heart healthy Patient's Activity: As tolerated Follow-Up Instructions/Appts: Follow up with your new PCP Dr. Talia Richey at [place], [place]. Please follow-up with your manager mining Kavin Garcia MD within 2 weeks of discharge Please follow-up with your last inserter Dr. Linares within weeks of discharge. Skin biopsy was performed while you were here, which will give you the tissue diagnosis of the reason of skin rash. It might require further workup and treatment. Please keep up with the appointments. Please return to emergency if symptoms worsen. Medications at Discharge Discharge Medications: Continue taking these medications: Cholecalciferol (Vitamin D3) (D3-50) 50,000 UNIT CAPSULE 1 Tablet ORAL ONCE A WEEK Qty = 6 Comments: NOT GIVEN IN THE HOSPITAL Start taking the following new medications: Triamcinolone Acetonide (Triamcinolone Acetonide) 0.1 % CREAM..G. 1 Application On the skin TWICE DAILY as needed for rash Days = 10 No Refills Comments: Last Taken:06/24/16 Time:10:00AM Amoxicillin/Potassium Clav (Augmentin 875-125 Tablet) 875 MG-125 MG TABLET 1 Tablet ORAL TWICE DAILY Days = 5 No Refills Comments: Last Taken:06/24/16 Time:10:00AM Copies To: BENOIT FOLEY,ZACHARY; DIVYA FOLEY,LEXI GARCIA MD,KAVIN TOUSSAINT MD,WALESKA Danilo
== END 2016-06-24 12:56 | DRG 603 ==
LOC: ERH 16:18 → ERHI 20:28 → 2NB 06-22 14:35
PROVIDERS: Emergency Medicine; Internal Medicine; Internal Medicine Hematology & Oncology; Radiology Diagnostic Radiology; ADMIT Student in an Organized Health Care Education/Training Program
PROC: 0HBDXZX Excision of Right Lower Arm Skin, External Approach, Diagnostic (ICD-10-PCS; principal; 2016-06-23)
DX: L03.116 Cellulitis of left lower limb (principal); Z68.45 Body mass index [BMI] 70 or greater, adult; R21 Rash and other nonspecific skin eruption; B37.9 Candidiasis, unspecified; D53.9 Nutritional anemia, unspecified; E55.9 Vitamin D deficiency, unspecified; L03.115 Cellulitis of right lower limb; E66.01 Morbid (severe) obesity due to excess calories
CPT/HCPCS: 2NBSP; 86021; 86160; 86317; 86618; 87798; ERO; 80307; 81001; 82436; 86431; 87040; 87045; 87086; 87389; 87804; 87804-59; 88305; 93005; 93010; 93970; 96361; 96374; 96375; J1650; J1885